=== PATIENT | female | born 2000 | race Caucasian/White ===

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

== ENCOUNTER → 2019-03-10 13:52 | Outpatient (CLI) | payer OTHER, SELFPAY ==
[2019-03-10 13:16] VITALS: BMI 23.0
[2019-03-10 15:38] LABS: HIV - WCH Non-Reactive (Nonreactive)
[2019-03-10 17:10] LABS: Chlamydia Trachomatis by PCR POSITIVE (Negative); Neisserai gonorrhoeae by PCR Negative (Negative); Probe Check PASS; Sample Adequacy Control PASS; Specimen Processing Control PASS
[2019-03-12 03:06] LABS: HCV Quant. RNA PCR HCV Not Detected IU/mL (.)
[2019-03-12 12:35] LABS: HSV 1 IgG < 0.91 index (0.00-0.90); HSV 2 IgG 3.46 index (0.00-0.90)
[2019-03-13 01:53] LABS: Rapid Plasmin Reagin (RPR) NONREACTIVE (NONREACTIVE)
== END ==
PROVIDERS: Referring Provider Nurse Practitioner Women's Health; Visit Provider Nurse Practitioner Women's Health
DX: Z11.3 Encounter for screening for infections with a predominantly sexual mode of transmission (principal)
CPT/HCPCS: 36415; 86592; 86695; 86696; 86703; 87491; 87522; 87591

== ENCOUNTER → 2019-03-22 14:26 | Outpatient (CLI) | payer OTHER, SELFPAY ==
[2019-03-22 08:20] VITALS: BMI 23.0
[2019-03-22 14:27] LABS: Mucous, Urine 0 SEEN /hpf (<or=2+)
[2019-03-22 14:53] LABS: Color, Urine SEE COMMENT BELOW (Yellow); Glucose, Dipstick Normal (Normal); Ketone-Dipstick Negative (Negative); Leukocyte Esterase-Dipstick 500 /ul (Negative); Nitrite-Dipstick Positive (Negative); Occult Blood-Urine 25 /ul (Negative); Protein-Dipstick 15 mg/dl (Negative); Urine Bilirubin Dipstick 6 mg/dL (Negative); Urine Clarity Sl. Cloudy (Clear); Urine Urobilinogen 8 mg/dl (Normal)
[2019-03-22 15:05] LABS: Bacteria RARE /hpf (None Seen); Red Blood Cells-Urine 0-5 SEEN /hpf (0-5); Squamous Epithelial Cells - UA 0-5 SEEN /hpf (5-10); White Blood Cells 10-25 SEEN /hpf (0-5)
== END ==
PROVIDERS: Referring Provider Physician Assistant; Visit Provider Physician Assistant
DX: R30.0 Dysuria (principal)
CPT/HCPCS: 81001; 87086; 87088

== ENCOUNTER → 2019-03-31 09:47 | Outpatient (CLI) | payer OTHER, SELFPAY ==
[2019-03-31 09:09] VITALS: BMI 23.0
[2019-03-31 12:05] LABS: Absolute Lymphocyte Count 1.31 X10^3/uL (0.83-4.51); Basophil# 0.01 X10^3/uL; Basophil% 0.1 % (0-1); Eosinophils% 1.5 % (0-5); Hematocrit 38.5 % (37-47); Lymphocyte # 1.31 X10^3/ul (4.0); Lymphocyte % 19.4 % (19-41); Mean Corp Hgb Conc 33.8 g/dL (32-36); Mean Corpuscular Hgb 30.1 pg (27.0-32.0); Mean Corpuscular Volume 89.1 fL (81-99); Mean Platelet Vol. 13.4 fl (6.2-12.0); Monocyte# 0.35 X10^3/uL; Monocyte% 5.2 % (0-10); NRBC Flagged by Analyzer 0 % (0-5); Neutrophil # 4.96 X10^3/uL (2.7-7.7); Neutrophil % 73.4 % (47-70); Platelet Count 157 K/mm3 (150-450); RBC Distribution Width CV 13.2 % (11.6-14.6); RBC Distribution Width SD 43.1 fl (35.1-43.9); Red Blood Count 4.32 M/mm3 (4.2-5.4); White Blood Count 6.8 K/mm3 (4.4-11.0)
[2019-03-31 12:28] LABS: Anion Gap 3 (5-15); BUN 11 mg/dL (7-18); BUN/Creat Ratio 15.1 RATIO (10-20); Calcium,Total 8.9 mg/dL (8.5-10.1); Chloride 106 mmol/L (98-107); Creatinine, Serum 0.73 mg/dL (0.55-1.02); EST Glomerular Filtration Rate 109 mL/min (>60); Est Glom Filt Rate - Afr Amer 132 mL/min (>60); Glucose 93 mg/dL (74-106); Potassium 3.9 mmol/L (3.5-5.1); Sodium Level 138 mmol/L (136-145); T4 Free Direct 1.04 ng/dL (0.76-1.46); Thyroid Stim Hormone (TSH) 0.89 uIU/mL (0.358-3.74)
== END ==
PROVIDERS: PCP Internal Medicine; Visit Provider Internal Medicine
DX: F41.9 Anxiety disorder, unspecified (principal); F32.9 Major depressive disorder, single episode, unspecified
CPT/HCPCS: 36415; 80048; 84439; 84443; 85025

== ENCOUNTER → 2019-07-22 13:08 | Outpatient (CLI) | payer OTHER, SELFPAY ==
[2019-07-22 12:56] VITALS: BMI 23.0
[2019-07-22 14:19] LABS: HIV - WCH Non-Reactive (Nonreactive)
[2019-07-22 16:14] LABS: Chlamydia Trachomatis by PCR Negative (Negative)
[2019-07-22 16:15] LABS: Neisserai gonorrhoeae by PCR Negative (Negative); Probe Check PASS; Sample Adequacy Control PASS; Specimen Processing Control PASS
[2019-07-24 01:56] LABS: Rapid Plasmin Reagin (RPR) NONREACTIVE (NONREACTIVE)
[2019-07-25 16:07] LABS: HCV Quant. RNA PCR HCV Not Detected IU/mL (.)
[2019-07-26 14:39] LABS: HSV 1 IgG < 0.91 index (0.00-0.90); HSV 2 IgG 1.16 index (0.00-0.90)
== END ==
PROVIDERS: PCP Internal Medicine; Referring Provider Nurse Practitioner Women's Health; Visit Provider Nurse Practitioner Women's Health
DX: Z11.3 Encounter for screening for infections with a predominantly sexual mode of transmission (principal)
CPT/HCPCS: 36415; 86592; 86695; 86696; 86703; 87491; 87522; 87591

== ENCOUNTER → 2019-10-03 08:34 | Outpatient (CLI) | payer OTHER, SELFPAY ==
[2019-10-03 08:10] VITALS: BMI 23.0
[2019-10-03 08:36] LABS: Mucous, Urine 0 SEEN /hpf (<or=2+); Red Blood Cells-Urine 0 SEEN /hpf (0-5)
[2019-10-03 12:18] LABS: Color, Urine Yellow (Yellow); Glucose, Dipstick Normal (Normal); Ketone-Dipstick Negative (Negative); Leukocyte Esterase-Dipstick 25 /ul (Negative); Nitrite-Dipstick Positive (Negative); Occult Blood-Urine Negative /ul (Negative); Protein-Dipstick 15 mg/dl (Negative); Specific Gravity, Urine 1.015 (1.002-1.030); Urine Clarity Sl. Cloudy (Clear); Urine Urobilinogen 4 mg/dl (Normal); Urine pH 6.5 (5.0 - 8.0)
[2019-10-03 12:20] LABS: Absolute Lymphocyte Count 1.93 X10^3/uL (0.83-4.51); Absolute Neutrophil Count 4.9 X10^3/uL (2.0-7.7); Basophil# 0.01 X10^3/uL; Basophil% 0.1 % (0-1); Eosinophil# 0.12 X10^3/uL; Eosinophils% 1.6 % (0-5); Hematocrit 40.2 % (37-47); Lymphocyte # 1.93 X10^3/ul (4.0); Lymphocyte % 25.8 % (19-41); Mean Corp Hgb Conc 32.3 g/dL (32-36); Mean Corpuscular Hgb 29.5 pg (27.0-32.0); Mean Corpuscular Volume 91.4 fL (81-99); Mean Platelet Vol. 13.6 fl (6.2-12.0); Monocyte# 0.52 X10^3/uL; NRBC Flagged by Analyzer 0 % (0-5); Neutrophil # 4.89 X10^3/uL (2.7-7.7); Neutrophil % 65.4 % (47-70); Platelet Count 139 K/mm3 (150-450); RBC Distribution Width CV 12.3 % (11.6-14.6); RBC Distribution Width SD 40.7 fl (35.1-43.9); White Blood Count 7.5 K/mm3 (4.4-11.0)
[2019-10-03 12:21] LABS: Urine Bilirubin Dipstick 3 mg/dL (Negative)
[2019-10-03 12:27] LABS: Bacteria 1+ /hpf (None Seen); Squamous Epithelial Cells - UA 0-5 SEEN /hpf (5-10); White Blood Cells 0-5 SEEN /hpf (0-5)
[2019-10-03 12:30] LABS: ALB/GLOB Ratio 1.2 RATIO (0.9-2.4); AST(SGOT) 14 U/L (15-37); Alanine Aminotransfer ALT/SGPT 23 U/L (13-56); Alkaline Phosphatase 60 U/L (45-117); Anion Gap 7 (5-15); BUN 15 mg/dL (7-18); BUN/Creat Ratio 22.8 RATIO (10-20); Calcium,Total 9.2 mg/dL (8.5-10.1); Chloride 103 mmol/L (98-107); Creatinine, Serum 0.66 mg/dL (0.55-1.02); EST Glomerular Filtration Rate 122 mL/min (>60); Est Glom Filt Rate - Afr Amer 148 mL/min (>60); Globulin 3.3 g/dL (2.2-4.2); Glucose 89 mg/dL (74-106); Potassium 3.7 mmol/L (3.5-5.1); Protein, Total 7.3 g/dL (6.4-8.2); Sodium Level 139 mmol/L (136-145)
[2019-10-03 13:48] LABS: Chlamydia Trachomatis by PCR Negative (Negative); Neisserai gonorrhoeae by PCR Negative (Negative); Probe Check PASS; Sample Adequacy Control PASS; Specimen Processing Control PASS
[2019-10-03 14:55] LABS: HIV - WCH Non-Reactive (Nonreactive); Hepatitis C Antibody Non-Reactive (Nonreactive); Vitamin B12 520 pg/mL (211-911)
[2019-10-19 23:48] LABS: CMV by PCR NEGATIVE
[2019-10-19 23:49] LABS: EBV Acute VCA IgM < 36.0
== END ==
PROVIDERS: PCP Internal Medicine; Referring Provider Internal Medicine; Visit Provider Internal Medicine
DX: R23.8 Other skin changes (principal); D69.6 Thrombocytopenia, unspecified; Z11.3 Encounter for screening for infections with a predominantly sexual mode of transmission; N39.0 Urinary tract infection, site not specified; R30.0 Dysuria
CPT/HCPCS: 36415; 80053; 81001; 82607; 85025; 86664; 86665; 86703; 86803; 87086; 87088; 87491; 87496; 87591

== ENCOUNTER → 2019-10-28 15:25 | Outpatient (CLI) | payer OTHER, SELFPAY ==
[2019-10-28 11:14] VITALS: BMI 23.0
[2019-10-28 15:33] LABS: Bacteria 0 SEEN /hpf (None Seen); Mucous, Urine 0 SEEN /hpf (<or=2+)
[2019-10-28 15:55] LABS: Color, Urine Yellow (Yellow); Glucose, Dipstick Normal (Normal); Ketone-Dipstick Negative (Negative); Leukocyte Esterase-Dipstick 25 /ul (Negative); Nitrite-Dipstick Negative (Negative); Occult Blood-Urine 25 /ul (Negative); Protein-Dipstick Negative (Negative); Urine Bilirubin Dipstick Negative (Negative); Urine Clarity Clear (Clear); Urine Urobilinogen Normal (Normal)
[2019-10-28 16:07] LABS: Red Blood Cells-Urine 0-5 SEEN /hpf (0-5); Squamous Epithelial Cells - UA 0-5 SEEN /hpf (5-10); White Blood Cells 0-5 SEEN /hpf (0-5)
== END ==
PROVIDERS: PCP Internal Medicine; Referring Provider Physician Assistant Surgical; Visit Provider Physician Assistant Surgical
DX: R30.0 Dysuria (principal)
CPT/HCPCS: 81001; 87077; 87086; 87088; 87186

== ENCOUNTER → 2019-11-07 09:04 | Outpatient (CLI) | payer OTHER, SELFPAY ==
[2019-11-07 08:28] VITALS: BMI 23.0
[2019-11-07 12:30] LABS: Absolute Neutrophil Count 3.3 X10^3/uL (2.0-7.7); Basophil# 0.01 X10^3/uL; Basophil% 0.2 % (0-1); Eosinophil# 0.12 X10^3/uL; Eosinophils% 2.2 % (0-5); Hematocrit 39.7 % (37-47); Hemoglobin 13.1 g/dL (12.0-15.0); Lymphocyte % 30.9 % (19-41); Mean Corpuscular Hgb 30.3 pg (27.0-32.0); Mean Corpuscular Volume 91.9 fL (81-99); Mean Platelet Vol. 13.7 fl (6.2-12.0); Monocyte# 0.34 X10^3/uL; Monocyte% 6.2 % (0-10); NRBC Flagged by Analyzer 0 % (0-5); Neutrophil # 3.33 X10^3/uL (2.7-7.7); Neutrophil % 60.3 % (47-70); Platelet Count 139 K/mm3 (150-450); RBC Distribution Width CV 12.4 % (11.6-14.6); RBC Distribution Width SD 41.5 fl (35.1-43.9); Red Blood Count 4.32 M/mm3 (4.2-5.4); White Blood Count 5.5 K/mm3 (4.4-11.0)
== END ==
PROVIDERS: PCP Internal Medicine; Referring Provider Internal Medicine; Visit Provider Internal Medicine
DX: D69.6 Thrombocytopenia, unspecified (principal)
CPT/HCPCS: 36415; 85025

== ENCOUNTER → 2019-11-21 07:44 | Outpatient (CLI) | payer OTHER, SELFPAY ==
[2019-10-30 14:24] VITALS: BMI 23.0
[2019-11-07 08:28] VITALS: BMI 23.0
--- NOTE | 2019-11-21 07:45 | US_ITS ---
STUDY: ULTRASOUND OF THE FEMALE PELVIS - COMPLETE REASON FOR EXAM: Female, 19 years old. Pelvic pain LMP: 10/21/2019. TECHNIQUE: Transabdominal and Transvaginal TECHNICAL QUALITY: Adequate. COMPARISON: None. FINDINGS: The uterus is anteverted and is in a midline position. The uterus measures 9.2 cm x 4.8 cm x 3.7 cm. Normal uterine cervix. The endometrium measures 7.2 mm in thickness, and is hyperechoic. There is no demonstrated endometrial mass. There is no demonstrated myometrial mass. I.U.D. - The patient does not have an I.U.D. The right ovary is visualized. The right ovary measures 3.8 cm x 2.5 cm x 2.2 cm. There is no right ovarian cyst or ovarian mass. Small ovarian follicles are seen. There is no visualized right adnexal mass or complex lesion. There is normal arterial and normal venous vascularity. The left ovary is visualized. The left ovary measures 3.7 cm x 4.2 cm x 2.6 cm. There is no left ovarian cyst or ovarian mass. Small ovarian follicles are seen. There is no visualized left adnexal mass or complex lesion. There is normal arterial and normal venous vascularity. There is no fluid in the cul-de-sac. The pre void volume of the bladder was 180 ml. Polycystic ovary disease: No. US/Pelvic (Non ) IMPRESSION: Normal female pelvis. Electronically Signed: Clarence Rodriguez, at 15:03 EDT , Service support ,
--- NOTE | 2019-11-21 07:45 | US_ITS ---
STUDY: ULTRASOUND OF THE FEMALE PELVIS - COMPLETE REASON FOR EXAM: Female, 19 years old. Pelvic pain LMP: 10/21/2019. TECHNIQUE: Transabdominal and Transvaginal TECHNICAL QUALITY: Adequate. COMPARISON: None. FINDINGS: The uterus is anteverted and is in a midline position. The uterus measures 9.2 cm x 4.8 cm x 3.7 cm. Normal uterine cervix. The endometrium measures 7.2 mm in thickness, and is hyperechoic. There is no demonstrated endometrial mass. There is no demonstrated myometrial mass. I.U.D. - The patient does not have an I.U.D. The right ovary is visualized. The right ovary measures 3.8 cm x 2.5 cm x 2.2 cm. There is no right ovarian cyst or ovarian mass. Small ovarian follicles are seen. There is no visualized right adnexal mass or complex lesion. There is normal arterial and normal venous vascularity. The left ovary is visualized. The left ovary measures 3.7 cm x 4.2 cm x 2.6 cm. There is no left ovarian cyst or ovarian mass. Small ovarian follicles are seen. There is no visualized left adnexal mass or complex lesion. There is normal arterial and normal venous vascularity. There is no fluid in the cul-de-sac. The pre void volume of the bladder was 180 ml. Polycystic ovary disease: No. US/Transvaginal Non- IMPRESSION: Normal female pelvis. Electronically Signed: Clarence Rodriguez, at 15:03 EDT , Service support ,
--- NOTE | 2019-11-21 08:22 | US_ITS ---
STUDY: RENAL ULTRASOUND - COMPLETE REASON FOR EXAM: Female, 19 years old. frequent UTI TECHNIQUE: Ultrasound evaluation of the kidneys was performed with real-time and static pérez-scale imaging. COMPARISON: None. FINDINGS: RIGHT KIDNEY: Normal location of the right kidney, which is normal in size. The right kidney measures 11.8 cm x 5.4 cm x 4.9 cm. There is a normal cortex of the right kidney. The renal cortex measures 2.2 cm. There is no right renal mass or cyst. There are no right renal calculi. There is no right hydronephrosis. DISTAL RIGHT URETER: There is non-visualization of the distal right ureter. There is no demonstrated right ureterovesical junction calculus. There is a visualized right ureteral jet. LEFT KIDNEY: Normal location of the left kidney, which is normal in size. The left kidney measures 11.8 signed by 4.6 x 5.4 cm. There is a normal cortex of the left kidney. The renal cortex measures 2.5 cm. There is no left renal mass or cyst. There are no left renal calculi. There is no left hydronephrosis. DISTAL LEFT URETER: There is non-visualization of the distal left ureter. There is no demonstrated left ureterovesical junction calculus. There is a visualized left ureteral jet. BLADDER: The distended urinary bladder has a volume of 215 ml. There is a normal wall thickness of the distended urinary bladder. There is no demonstrated mass within the urinary bladder. There are no demonstrated bladder calculi. US/Kidney and Bladder IMPRESSION: Normal ultrasound of the kidneys and urinary bladder. Electronically Signed: Clarence Rodriguez, at 14:17 EDT , Service support ,
== END ==
PROVIDERS: PCP Internal Medicine; Referring Provider Nurse Practitioner Women's Health; Visit Provider Nurse Practitioner Women's Health
DX: N39.0 Urinary tract infection, site not specified (principal); R10.2 Pelvic and perineal pain
CPT/HCPCS: 76770; 76830; 76856; 93976

== ENCOUNTER → 2020-03-22 13:45 | Outpatient (CLI) | payer OTHER, SELFPAY ==
[2019-11-24 17:19] VITALS: BMI 23.0
[2020-03-22 16:33] LABS: Bacteria 0 SEEN /hpf (None Seen); Mucous, Urine 0 SEEN /hpf (<or=2+); Red Blood Cells-Urine 0 SEEN /hpf (0-5); Squamous Epithelial Cells - UA 0 SEEN /hpf (5-10)
[2020-03-22 17:04] LABS: Color, Urine Yellow (Yellow); Glucose, Dipstick Normal (Normal); Ketone-Dipstick Negative (Negative); Leukocyte Esterase-Dipstick Negative /ul (Negative); Nitrite-Dipstick Negative (Negative); Occult Blood-Urine Negative /ul (Negative); Protein-Dipstick Negative (Negative); Urine Bilirubin Dipstick Negative (Negative); Urine Clarity Clear (Clear); Urine Urobilinogen Normal (Normal)
[2020-03-22 17:42] LABS: White Blood Cells 0-5 SEEN /hpf (0-5)
[2020-03-22 19:03] LABS: Chlamydia Trachomatis by PCR Negative (Negative); Neisserai gonorrhoeae by PCR Negative (Negative); Probe Check PASS; Sample Adequacy Control PASS; Specimen Processing Control PASS
== END ==
PROVIDERS: PCP Internal Medicine; Referring Provider Physician Assistant; Visit Provider Physician Assistant
DX: R30.0 Dysuria (principal)
CPT/HCPCS: 81001; 87086; 87491; 87591

== ENCOUNTER → 2020-12-23 14:35 | Outpatient (CLI) | payer BC, SELFPAY | PROVIDERS: PCP Internal Medicine; Referring Provider Physician Assistant; Visit Provider Physician Assistant | DX: R09.89 Other specified symptoms and signs involving the circulatory and respiratory systems (principal) | CPT/HCPCS: 87635; U0005; U0003 ==

== ENCOUNTER → 2020-12-29 13:14 | Outpatient (CLI) | payer BC, SELFPAY | PROVIDERS: PCP Internal Medicine; Visit Provider Physician Assistant | DX: Z11.52 Encounter for screening for COVID-19 (principal) | CPT/HCPCS: 87635; U0005; U0003 ==

== ENCOUNTER 2021-09-14 14:51 | Emergency (ER) | payer BC, SELFPAY ==
[2021-09-14 14:51] VITALS: BP 129/78; PULSE 91; RESP 18; TEMP 36.7; O2SAT 98; BMI 27.6
--- NOTE | 2021-09-14 16:14 | EX.ED.DYSGE1 ---
HPI History of Present Illness Chief Complaint: GI Bleed Detail of Chief Complaint: rectal bleeding Informant: patient Onset/Context/Timing Onset: Days (2) Timing: Intermittent Quality: BRB after BM Location: rectum Current Severity: Mild Maximum Severity: Mild Worsened by: having BM Relieved by: nothing Associated Symptoms Associated Symptoms: anal pain w/ BMs. abd bloating at times. constipation. Narrative Narrative: Patient is chronically constipated. She states typically 3 to 4 days out of each week, she tends to have very hard stools resulting in straining. She has had some blood come out after bowel movement, not mixed with stool, for the past 2 days. She is also had perianal pain with this when she is passing stool. She states it feels very sharp and she cannot necessarily feel which side it is on if any. Occasional abdominal bloating and some nausea, but not necessarily just the past 2 days for that. No systemic symptoms of anemia. Called her doctor's office and referred to the ER for this today. [facility] Medical History Anxiety Concussion Depression Dermatitis Encounter for screening for COVID-19 Headache Hives Seasonal allergies Home Medications valacyclovir 500 mg tablet 500 mg PO BID PRN #90 tablet 07/13/20 [Rx Last Taken Unknown] desogestrel-e.estradiol 0.15 mg-0.02 mg(21)/e.estrad 0.01 mg(5) tablet 1 tab PO DAILY #84 tab 06/27/21 [Rx Last Taken Unknown] sertraline 50 mg tablet 75 mg PO DAILY 30 Days #45 tab 06/27/21 [Rx Last Taken Unknown] albuterol sulfate 90 mcg/actuation aerosol inhaler 2 puff INHALATION Q6H PRN #6.7 g 08/16/21 [Rx Last Taken Unknown] hydrocortisone-pramoxine [Proctofoam HC] 1 applic AL QHS PRN #10 g 09/14/21 [Rx Last Taken Unknown] melatonin 40 mg PO QHS PRN 09/14/21 [History Last Taken Unknown] spironolactone 75 mg PO DAILY 09/14/21 [History Last Taken Unknown] Allergy/AdvReac Type Severity Reaction Status Date / Time ascorbic acid Allergy Intermediate unknown Verified 09/14/21 14:53 [From Airborne (ascorbate sodium)] glutamine Allergy Intermediate unknown Verified 09/14/21 14:53 [From Airborne (ascorbate sodium)] herbal complex no.124 Allergy Intermediate unknown Verified 09/14/21 14:53 [From Airborne (ascorbate sodium)] lysine HCl Allergy Intermediate unknown Verified 09/14/21 14:53 [From Airborne (ascorbate sodium)] multivitamin with minerals Allergy Intermediate unknown Verified 09/14/21 14:53 [From Airborne (ascorbate sodium)] latex AdvReac Mild hives Verified 09/14/21 14:53 Milk Containing Products AdvReac Mild unknown Verified 09/14/21 14:53 Family History Mother Breast cancer Osteoporosis Grandfather Heart disease Grandmother Anxiety Other Alcohol abuse Arthritis Cancer Surgical History History of anterior cruciate ligament surgery History of tonsillectomy and adenoidectomy History of wisdom tooth extraction Social History current occupation: [employer] Smoking Status: Never smoker alcohol intake: never substance use type: does not use what type of physical activity do you participate in: walking frequency: daily seatbelt use: always do you feel safe at home: Yes ROS ROS ED Constitutional Constitutional ED: Denies chills or fever(s) Eyes Eyes: Denies change in vision or diplopia ENT ENT ED: Denies rhinorrhea or sore throat Cardiovascular Cardiovascular: Denies chest pain or palpitations Respiratory/Chest Respiratory/Chest: Denies cough or dyspnea Gastrointestinal Gastrointestinal: Reports as per HPI, bloating, constipation, nausea and rectal bleeding; Denies abdominal pain, diarrhea, hematemesis, melena or vomiting Genitourinary Genitourinary ED: Denies dysuria or hematuria Musculoskeletal Musculoskeletal: Denies back pain or neck pain Integumentary Denies abscess or rash Neurologic Neurologic: Denies headache(s), paresthesias or weakness Psychiatric Psychiatric: Denies anxiety or suicidal thoughts EXAM Physical Exam Const Vital Signs: 09/14/21 14:51 Temperature 98.1 F Temperature Source Temporal Pulse Rate 91 Respiratory Rate 18 Blood Pressure 129/78 H Blood Pressure Mean 95 Pulse Ox 98 Oxygen Delivery Method Room Air Positive well nourished and well developed General Appearance ED: well developed and NAD HEENT Reports moist mucous membranes normocephalic and atraumatic Eyes PERRL and EOMs intact bilaterally Neck full ROM and supple Resp normal respiratory effort and clear to auscultation bilaterally Cardio regular rate, regular rhythm and no murmurs GI non-tender and non-distended GI Narrative: Abdomen nondistended and nontender throughout. Patient is well appearing. On rectal exam, there is some mild tenderness on both sides, there is no fullness or abscess. There appears to be a nonbleeding mostly healed fissure at the 3:00 aspect of the anal verge. No other abnormalities. No external hemorrhoids seen. No active bleeding. Auscultation: normoactive bowel sounds Palpation: soft Back/Spine no CVA tenderness General Back: other FROM Extremity normal to inspection General Extremety ED: Negative for edema, pulses abnormal or tenderness General Extremity: Negative for edema or pulses abnormal Neuro oriented x3, CN's II-XII intact bilaterally and no sensory deficits noted Sensorium / Orientation: awake and alert Motor Exam: strength 5/5 throughout Skin no rashes or lesions noted and no wounds MDM MDM MDM Narrative Medical decision making narrative: Reassured I do not think she needs any emergent testing here in emergency department. Could have a small anal fissure that is not necessarily acute/new, could also have internal hemorrhoids or external hemorrhoids below the dentate line that are not currently visible or prolapsed/thrombosed. I recommend Proctofoam injected into the anus, in addition to sitz baths, I will give her surgery to follow-up with. We also discussed using MiraLAX every day as a stool softener, she only uses it at stool-softening doses when she actually needs a laxative. Her symptoms are consistent with constipation-prominent irritable bowel syndrome. I will refer her to GI since she does have some chronic issues/symptoms with regards to the GI tract. Discharge Plan Triage Chief Complaint: GI Bleed ED Provider: Nolan Goyal Dx/Rx/DC Orders Clinical Impression: Bright red rectal bleeding, Constipation, Anal fissure Instructions: ED Understanding Anal Fissures, Diagnosing Hemorrhoids, Taking a Sitz Bath, ED Constipation (Adult) Prescriptions: New Proctofoam HC 1-1 % foam 1 applic AL QHS PRN (Reason: hemorrhoids) Qty: 10 RF: 0 No Action valacyclovir [Valtrex] 500 mg tablet 500 mg PO BID PRN (Reason: Herpes) Qty: 90 RF: 3 desog-e.estradiol/e.estradiol [Kariva (28)] 0.15-0.02 mgx21 /0.01 mg x 5 tablet 1 tab PO DAILY Qty: 84 RF: 3 sertraline 50 mg tablet 75 mg PO DAILY 30 Days Qty: 45 RF: 1 albuterol sulfate 90 mcg/actuation HFA aerosol inhaler 2 puff inhalation Q6H PRN (Reason: shortness of breath or wheezing) Qty: 6.7 RF: 1 spironolactone 100 mg tablet 75 mg PO DAILY RF: 0 melatonin 10 mg Tablet 40 mg PO QHS PRN (Reason: Sleep) RF: 0 Stand Alone Forms: ED Work / School Excuse Primary Care Provider: Jorden Dietrich Referrals: Jorden Dietrich MD [Primary Care Provider] - Redd Bianchi DO [STAFF PHYSICIAN] - (Call for appointment) Activity Restrictions/Additional Instructions: Use the prescription as directed for at least the next 7-10 days, in addition to sitz bath as for the anal fissure and softening her stool with MiraLAX daily, Dulcolax as needed is a laxative. Disposition Disposition: Home, Self Care
[2021-09-14 16:34] VITALS: RESP 16
== END 2021-09-14 16:35 | disposition home or self-care (01) ==
PROVIDERS: Emergency Provider Emergency Medicine; PCP Internal Medicine; Visit Provider Emergency Medicine
DX: K62.5 Hemorrhage of anus and rectum (principal); K59.00 Constipation, unspecified; K60.2 Anal fissure, unspecified; Z79.899 Other long term (current) drug therapy
CPT/HCPCS: 99282

== ENCOUNTER → 2021-11-24 | Outpatient (CLI) | payer BC, SELFPAY ==
[2021-11-24 10:35] LABS: HIV - WCH Non-Reactive (Nonreactive); Hepatitis C Antibody Non-Reactive (Nonreactive); Syphilis Antibodies Non-reactive
[2021-11-25 21:06] LABS: Chlamydia By Nucleic Acid AMP Negative (Negative)
[2021-11-26 15:39] LABS: Gonococcus By Nucleic Acid AMP Negative (Negative)
[2021-11-30 14:27] LABS: HPV Reflexed? NOT INDICATED
== END | disposition home or self-care (01) ==
PROVIDERS: PCP Internal Medicine; Visit Provider Nurse Practitioner Women's Health
DX: Z20.2 Contact with and (suspected) exposure to infections with a predominantly sexual mode of transmission (principal); Z12.4 Encounter for screening for malignant neoplasm of cervix
CPT/HCPCS: 36415; 86703; 86780; 86803; 87491; 87591; 88175; G0145

== ENCOUNTER 2022-03-10 11:22 | Emergency (ER) | payer BC, SELFPAY ==
[2022-03-10 11:23] VITALS: BP 119/80; PULSE 111; RESP 18; TEMP 36.6; O2SAT 100; BMI 27.3
--- NOTE | 2022-03-10 11:43 | EDS_ITS ---
HPI History of Present Illness Chief Complaint: Allergic Reaction Informant: patient Onset/Context/Timing Onset: Days (3) Context: Gradual Onset Timing: Continuous Quality: Itching. Location: Generalized Worsened by: Nothing Relieved by: Nothing Narrative Narrative: Patient presents with allergic reaction that has been getting worse over the last 3 days. Patient started with a rash 2 days ago. Patient states it is gradually getting worse. Patient describes it as itching and hives. Patient states her throat started feeling scratchy today. Patient started having some shortness of breath today. Patient states nothing makes it worse and nothing makes it better. Patient has a history of multiple environmental allergies but denies any new exposures. [facility] Medical History Concussion Contact with and (suspected) exposure to other viral communicable diseases COVID-19 Depression Dermatitis Headache Hives Seasonal allergies URI (upper respiratory infection) Home Medications albuterol sulfate 90 mcg/actuation aerosol inhaler 2 puff inhalation Q6H PRN shortness of breath or wheezing #6.7 grams 08/16/21 [Rx Last Taken Unknown] melatonin 10 mg tablet 40 mg PO QHS PRN Sleep 09/14/21 [History Last Taken Unknown] sertraline 200 mg capsule 200 mg PO DAILY #30 caps 01/16/22 [Rx Last Taken Unknown] valacyclovir 500 mg tablet (Valtrex) 500 mg PO BID PRN Herpes #90 tabs 01/23/22 [Rx Last Taken Unknown] methylprednisolone 4 mg tablets in a dose pack See Rx Instructions PO PER PKG DIR #21 tabs 01/26/22 [Rx Last Taken Unknown] trazodone 50 mg tablet 25 mg PO QHS PRN sleep #20 tabs 02/23/22 [Rx Last Taken Unknown] prednisone 20 mg tablet 60 mg PO DAILY #12 TABLETS 03/10/22 [Rx Last Taken Unknown] Allergy/AdvReac Type Severity Reaction Status Date / Time ascorbic acid Allergy Intermediate unknown Verified 03/10/22 11:23 [From Airborne (ascorbate sodium)] glutamine Allergy Intermediate unknown Verified 03/10/22 11:23 [From Airborne (ascorbate sodium)] herbal complex no.124 Allergy Intermediate unknown Verified 03/10/22 11:23 [From Airborne (ascorbate sodium)] lysine HCl Allergy Intermediate unknown Verified 03/10/22 11:23 [From Airborne (ascorbate sodium)] multivitamin with minerals Allergy Intermediate unknown Verified 03/10/22 11:23 [From Airborne (ascorbate sodium)] latex AdvReac Mild hives Verified 03/10/22 11:23 Milk Containing Products AdvReac Mild unknown Verified 03/10/22 11:23 Family History Mother Breast cancer Osteoporosis Grandfather Heart disease Grandmother Anxiety Other Alcohol abuse Arthritis Cancer Surgical History History of anterior cruciate ligament surgery History of tonsillectomy and adenoidectomy History of wisdom tooth extraction Social History current occupational status: employed current occupation: [email or web address] Smoking Status: Never smoker alcohol intake: current alcohol intake frequency: a few times a month substance use type: does not use what type of physical activity do you participate in: walking frequency: daily seatbelt use: always do you feel safe at home: Yes ROS ROS ED Constitutional Constitutional ED: Denies chills or fever(s) Eyes Eyes: Denies blurry vision or change in vision ENT ENT ED: Reports sore throat; Denies rhinorrhea Cardiovascular Cardiovascular: Denies chest pain or palpitations Respiratory/Chest Respiratory/Chest: Reports dyspnea; Denies cough Gastrointestinal Gastrointestinal: Denies nausea or vomiting Genitourinary Genitourinary ED: Denies dysuria or hematuria Musculoskeletal Musculoskeletal: Denies back pain or neck pain Integumentary Reports rash; Denies abscess Neurologic Neurologic: Denies headache(s) or weakness Allergic/Immunologic Allergic/Immunologic ED: Reports urticaria; Denies mouth swelling or tongue sw elling EXAM Physical Exam Const Vital Signs: 03/10/22 11:23 03/10/22 11:59 Temperature 97.8 F Temperature Source Temporal Pulse Rate 111 H 94 Respiratory Rate 18 18 Blood Pressure 119/80 Blood Pressure Mean 93 Pulse Ox 100 98 Oxygen Delivery Method Room Air Room Air Positive well nourished and well developed General Appearance ED: well developed HEENT Reports moist mucous membranes Neck supple and no JVD Resp normal respiratory effort and clear to auscultation bilaterally Cardio regular rate, regular rhythm and no murmurs GI normal to inspection, nondistended, normoactive bowel sounds and non-tender Palpation: soft Extremity normal to inspection General Extremety ED: Negative for edema or tenderness General Extremity: Negative for edema Neuro oriented x3, CN's II-XII intact bilaterally and no sensory deficits noted Sensorium / Orientation: alert Motor Exam: strength 5/5 throughout Psych mental status grossly normal Skin Skin Narrative: There is a diffuse urticarial rash noted. There are no vesicles or pustules. There are no petechia noted. There is no involvement with the mucous membranes. MDM MDM MDM Narrative Medical decision making narrative: Patient was given Solu-Medrol, Benadryl, and Pepcid. Patient is feeling better on reevaluation. Rash is improving. Patient was given a prescription for prednisone. Patient was instructed to follow-up with her primary care physician in 5 to 7 days. Patient understood and was agreeable with the plan. All questions were answered. Discharge Plan Triage Chief Complaint: Allergic Reaction ED Provider: Negro Martinez Dx/Rx/DC Orders Clinical Impression: Urticaria, Allergic reaction Instructions: ED Hives (Adult) Prescriptions: New prednisone 20 MG tablet 60 mg PO DAILY Qty: 12 0RF No Action albuterol sulfate 90 mcg/actuation HFA aerosol inhaler 2 puff inhalation Q6H PRN (Reason: shortness of breath or wheezing) Qty: 6.7 1RF sertraline 200 mg capsule 200 mg PO DAILY Qty: 30 0RF methylprednisolone 4 mg tablets,dose pack See Rx Instructions PO PER PKG DIR Qty: 21 0RF Rx Instructions: PO PER PKG DIR melatonin 10 mg Tablet 40 mg PO QHS PRN (Reason: Sleep) valacyclovir [Valtrex] 500 mg tablet 500 mg PO BID PRN (Reason: Herpes) Qty: 90 3RF trazodone 50 mg tablet 25 mg PO QHS PRN (Reason: sleep) Qty: 20 0RF Primary Care Provider: Jorden Dietrich Referrals: Jorden Dietrich MD [Primary Care Provider] - 5-7 Days Disposition Disposition: Home, Self Care
[2022-03-10] MEDS: DiphenhydrAMINE 50 MG/ML Syringe 25 MG IV (11:51)
[2022-03-10] MEDS: MethylPREDNISolone 125 MG/2 ML Vial 60 MG IV (11:51)
[2022-03-10] MEDS: Famotidine 200 MG/20 ML MDV 20 MG in 0.9% Normal Saline (Pres. free 8 ML 300 MG IV (11:56)
[2022-03-10 11:59] VITALS: PULSE 94; RESP 18; O2SAT 98
[2022-03-10 13:59] VITALS: PULSE 75; O2SAT 98
== END 2022-03-10 14:03 | disposition home or self-care (01) ==
PROVIDERS: Emergency Provider Emergency Medicine; PCP Internal Medicine; Visit Provider Emergency Medicine
DX: L50.9 Urticaria, unspecified (principal); T78.40XA Allergy, unspecified, initial encounter; Z86.16 Personal history of COVID-19; X58.XXXA Exposure to other specified factors, initial encounter
CPT/HCPCS: 96374; 96375; 99283; A4216; J3490

== ENCOUNTER → 2022-06-13 | Outpatient (CLI) | payer BC, SELFPAY ==
[2022-06-13 17:10] LABS: HIV - WCH Non-Reactive (Nonreactive); Hepatitis C Antibody Non-Reactive (Nonreactive); Syphilis Antibodies Non-reactive
== END | disposition home or self-care (01) ==
LOC: LAB 13:38
PROVIDERS: PCP Internal Medicine; Visit Provider Nurse Practitioner Women's Health
DX: Z20.2 Contact with and (suspected) exposure to infections with a predominantly sexual mode of transmission (principal)
CPT/HCPCS: 36415; 86703; 86780; 86803

== ENCOUNTER → 2022-07-13 | Outpatient (CLI) | payer BC, SELFPAY ==
[2022-07-15 18:07] LABS: Clam <0.10 kU/L (Class 0); Codfish <0.10 kU/L (Class 0); Corn <0.10 kU/L (Class 0); Egg, White <0.10 kU/L (Class 0); Milk (Cow) <0.10 kU/L (Class 0); Peanut <0.10 kU/L (Class 0); Shrimp <0.10 kU/L (Class 0); Soybean <0.10 kU/L (Class 0); Walnut, (Food) <0.10 kU/L (Class 0); Wheat 0.16 kU/L (Class 0/I)
[2022-07-16 11:18] LABS: SESAME SEED 0.16 kU/L (Class 0/I)
[2022-07-19 06:08] LABS: Alternaria tenuis <0.10 kU/L (Class 0); Ash, White 0.15 kU/L (Class 0/I); Aspergillus fumigatus <0.10 kU/L (Class 0); Birch <0.10 kU/L (Class 0); Black Walnut 0.14 kU/L (Class 0/I); Cat Hair / Dander,Stand <0.10 kU/L (Class 0); Cedar, Mountain 0.12 kU/L (Class 0/I); Cladosporium herbarum <0.10 kU/L (Class 0); Cockroach, American 0.33 kU/L (Class I); Cottonwood <0.10 kU/L (Class 0); D farinae Mite <0.10 kU/L (Class 0); D pteronyssinus <0.10 kU/L (Class 0); Dog Epithelia <0.10 kU/L (Class 0); Elm, American White 0.11 kU/L (Class 0/I); Immunoglobulin E 26 IU/mL (6-495); Mulberry, White <0.10 kU/L (Class 0); Oak, White 0.16 kU/L (Class 0/I); Pecan <0.10 kU/L (Class 0); Penicillium Notatum <0.10 kU/L (Class 0); Pigweed, Rough <0.10 kU/L (Class 0); Ragweed, Short/Common 0.27 kU/L (Class 0/I); Russian Thistle 0.22 kU/L (Class 0/I); Sheep Sorrel 0.28 kU/L (Class 0/I); Sycamore, American 0.13 kU/L (Class 0/I); Timothy Grass 0.16 kU/L (Class 0/I)
[2022-07-19 09:49] LABS: Mouse Urine <0.10 kU/L (Class 0)
== END | disposition home or self-care (01) ==
LOC: LAB 09:24
PROVIDERS: PCP Internal Medicine; Referring Provider Otolaryngology; Visit Provider Otolaryngology
DX: T78.40XA Allergy, unspecified, initial encounter (principal)
CPT/HCPCS: 36415; 82785; 86003

== ENCOUNTER → 2022-11-02 | Outpatient (CLI) | payer BC, SELFPAY ==
[2022-11-02 11:58] LABS: Absolute Lymphocyte Count 1.52 X10^3/uL (0.83-4.51); Absolute Neutrophil Count 5.2 X10^3/uL (2.0-7.7); Basophil# 0.01 X10^3/uL; Basophil% 0.1 % (0-1); Eosinophil# 0.12 X10^3/uL; Eosinophils% 1.7 % (0-5); Hematocrit 42.5 % (37-47); Hemoglobin 13.9 g/dL (12.0-15.0); Lymphocyte # 1.52 X10^3/ul (0.83-4.51); Lymphocyte % 21.2 % (19-41); Mean Corp Hgb Conc 32.7 g/dL (32-36); Mean Corpuscular Hgb 29.1 pg (27.0-32.0); Mean Corpuscular Volume 89.1 fL (81-99); Mean Platelet Vol. 13.3 fl (6.2-12.0); Monocyte% 4.2 % (0-10); NRBC Flagged by Analyzer 0 % (0-5); Neutrophil # 5.19 X10^3/uL (2.7-7.7); Neutrophil % 72.4 % (47-70); Platelet Count 158 K/mm3 (150-450); RBC Distribution Width CV 12.6 % (11.6-14.6); RBC Distribution Width SD 41.1 fl (35.1-43.9); Red Blood Count 4.77 M/mm3 (4.2-5.4); White Blood Count 7.2 K/mm3 (4.4-11.0)
[2022-11-02 12:55] LABS: Anion Gap 6 (5-15); BUN 10 mg/dL (7-18); BUN/Creat Ratio 12.6 RATIO (10-20); Calcium,Total 9.4 mg/dL (8.5-10.1); Chloride 103 mmol/L (98-107); Creatinine, Serum 0.79 mg/dL (0.55-1.02); EST Glomerular Filtration Rate 96 mL/min (>60); Est Glom Filt Rate - Afr Amer 116 mL/min (>60); Glucose 138 mg/dL (74-106); Potassium 3.7 mmol/L (3.5-5.1); Sodium Level 138 mmol/L (136-145); Thyroid Stim Hormone (TSH) 0.79 uIU/mL (0.358-3.74)
== END | disposition home or self-care (01) ==
LOC: LAB 11:05
PROVIDERS: PCP Internal Medicine; Referring Provider Student in an Organized Health Care Education/Training Program; Visit Provider Student in an Organized Health Care Education/Training Program
DX: G47.10 Hypersomnia, unspecified (principal); F43.10 Post-traumatic stress disorder, unspecified
CPT/HCPCS: 36415; 80048; 84443; 85025

== ENCOUNTER → 2022-11-28 | Outpatient (CLI) | payer BC, SELFPAY ==
[2022-11-28 10:58] LABS: hCG Titer Quant., Serum 63 mIU/mL (1-3)
== END | disposition home or self-care (01) ==
PROVIDERS: PCP Internal Medicine; Referring Provider Nurse Practitioner Women's Health; Visit Provider Nurse Practitioner Women's Health
DX: Z34.90 Encounter for supervision of normal pregnancy, unspecified, unspecified trimester (principal)
CPT/HCPCS: 36415; 84702; 86850; 86900; 86901

== ENCOUNTER → 2022-11-30 | Outpatient (CLI) | payer BC, SELFPAY ==
[2022-11-30 11:03] LABS: hCG Titer Quant., Serum 182 mIU/mL (1-3)
== END | disposition home or self-care (01) ==
LOC: PAVLAB 09:51
PROVIDERS: PCP Internal Medicine; Referring Provider Nurse Practitioner Women's Health; Visit Provider Nurse Practitioner Women's Health
DX: Z34.90 Encounter for supervision of normal pregnancy, unspecified, unspecified trimester (principal)
CPT/HCPCS: 36415; 84702

== ENCOUNTER 2022-12-14 13:32 | Outpatient (CLI) | payer BC, SELFPAY ==
[2022-12-14] MEDS: 0.9% NaCl Peripheral Flush Adult/Peds IV (14:21)
[2022-12-14] MEDS: Ondansetron 4 MG/2 ML Vial IV (14:29)
[2022-12-14] MEDS: Dextrose 5%-Lactated Ringers 1,000 ML 999 ML IV (14:29)
[2022-12-14 14:31] VITALS: BP 115/66; PULSE 71; RESP 16; TEMP 36.3; O2SAT 98
[2022-12-14 15:43] VITALS: BP 105/60; PULSE 68; RESP 16
== END 2022-12-14 13:33 | disposition home or self-care (01) ==
LOC: MEDOUTP 13:32
PROVIDERS: PCP Internal Medicine; Referring Provider Obstetrics & Gynecology; Visit Provider Obstetrics & Gynecology
DX: E86.0 Dehydration (principal)
CPT/HCPCS: 96365; 96375; A4216; J2405

== ENCOUNTER 2022-12-19 11:44 | Outpatient (CLI) | payer BC, SELFPAY ==
[2022-12-19 12:08] VITALS: BP 110/73; PULSE 67; RESP 16; TEMP 36.1; O2SAT 100
[2022-12-19] MEDS: Dextrose 5%-Lactated Ringers 1,000 ML 999 ML IV (12:11)
[2022-12-19] MEDS: Ondansetron 4 MG/2 ML Vial IV (13:07)
[2022-12-19] MEDS: 0.9% NaCl Peripheral Flush Adult/Peds IV (13:09)
[2022-12-22 13:07] LABS: Chlamydia By Nucleic Acid AMP Negative (Negative); Gonococcus By Nucleic Acid AMP Negative (Negative)
== END 2022-12-19 11:45 | disposition home or self-care (01) ==
PROVIDERS: PCP Internal Medicine; Referring Provider Obstetrics & Gynecology; Visit Provider Obstetrics & Gynecology
DX: Z34.90 Encounter for supervision of normal pregnancy, unspecified, unspecified trimester (principal); O99.280 Endocrine, nutritional and metabolic diseases complicating pregnancy, unspecified trimester; E86.0 Dehydration; Z3A.00 Weeks of gestation of pregnancy not specified
CPT/HCPCS: 96365; 96375; 87491; 87591; A4216; J2405

== ENCOUNTER 2022-12-28 12:52 | Outpatient (CLI) | payer BC, SELFPAY ==
[2022-12-28] MEDS: Dextrose 5%-Lactated Ringers 1,000 ML 999 ML IV (13:28)
[2022-12-28] MEDS: Ondansetron 4 MG/2 ML Vial IV (13:34)
[2022-12-28] MEDS: 0.9% NaCl Peripheral Flush Adult/Peds IV (13:35)
[2022-12-28 13:38] VITALS: BP 114/76; PULSE 73; RESP 16; TEMP 36.6; O2SAT 98; BMI 27.5
[2022-12-28 14:42] VITALS: BP 117/61; RESP 16
== END 2022-12-28 12:53 | disposition home or self-care (01) ==
PROVIDERS: PCP Internal Medicine; Referring Provider Obstetrics & Gynecology; Visit Provider Obstetrics & Gynecology
DX: E86.0 Dehydration (principal)
CPT/HCPCS: 96365; 96375; 87086; 87088; A4216; J2405

== ENCOUNTER 2023-01-01 11:54 | Outpatient (CLI) | payer MEDICAID, BC, SELFPAY ==
[2023-01-01] MEDS: 0.9% NaCl Peripheral Flush Adult/Peds IV (12:14)
[2023-01-01] MEDS: Dextrose 5%-Lactated Ringers 1,000 ML 999 ML IV (12:19)
[2023-01-01] MEDS: Ondansetron 4 MG/2 ML Vial IV (12:19)
[2023-01-01 12:21] VITALS: BP 99/76; PULSE 62; RESP 16; TEMP 36.2; O2SAT 100
[2023-01-01 13:31] VITALS: BP 119/64; PULSE 81; RESP 16
== END 2023-01-01 11:55 | disposition home or self-care (01) ==
PROVIDERS: PCP Internal Medicine; Referring Provider Registered Nurse; Visit Provider Registered Nurse
DX: O09.91 Supervision of high risk pregnancy, unspecified, first trimester (principal); O99.280 Endocrine, nutritional and metabolic diseases complicating pregnancy, unspecified trimester; E86.0 Dehydration; Z3A.00 Weeks of gestation of pregnancy not specified
CPT/HCPCS: 96365; 96375; 87077; 87086; 87088; 87186; A4216; J2405

== ENCOUNTER 2023-01-11 12:37 | Emergency (ER) | payer BC, SELFPAY ==
[2023-01-11 12:39] VITALS: BP 112/79; PULSE 86; RESP 18; TEMP 36.3; O2SAT 100; BMI 28.3
--- NOTE | 2023-01-11 13:08 | EDS_ITS ---
HPI History of Present Illness Chief Complaint: Nausea/Vomiting Informant: patient Narrative Narrative: Presents secondary to nausea and vomiting with concerns for dehydration. She is currently 10 weeks and has been diagnosed with hyperemesis. She states that she was on Zofran as well as oral Phenergan in the past. She is currently on a rectal Phenergan, but states this irritates her stomach and causes her to have a bowel movement as soon as she inserts it so she does not feel it is being absorbed. She has not been able to keep any fluids down today and has not urinated. She states that she is being treated for a UTI but cannot keep the antibiotic down. [facility] Medical History COVID-19 Depression Dermatitis Hives Hypersomnia PTSD (post-traumatic stress disorder) Seasonal allergies Sore throat Home Medications epinephrine 0.3 mg/0.3 mL injection, auto-injector (EpiPen) 0.3 mg (0.3 mL) IM ONCE PRN anaphylaxis #2 ea 03/28/22 [Rx Last Taken Unknown] sertraline 200 mg capsule 200 mg PO DAILY #90 caps 05/15/22 [Rx Last Taken Unknown] ondansetron 4 mg disintegrating tablet 4 mg PO Q6H PRN nausea and vomiting #30 tabs 12/19/22 [Rx Last Taken Unknown] promethazine 25 mg rectal suppository 25 mg HI Q6H PRN nausea and vomiting #12 ea 01/01/23 [Rx Last Taken Unknown] amoxicillin 500 mg tablet 500 mg PO BID #14 tabs 01/03/23 [Rx Last Taken Unknown] metoclopramide HCl 10 mg tablet (Reglan) 10 mg PO Q6H PRN nausea and vomiting #20 tabs 01/11/23 [Rx Last Taken Unknown] Allergy/AdvReac Type Severity Reaction Status Date / Time ascorbic acid Allergy Intermediate Hives Verified 01/11/23 12:39 [From Airborne (ascorbate sodium)] glutamine Allergy Intermediate unknown Verified 01/01/23 10:36 [From Airborne (ascorbate sodium)] herbal complex no.124 Allergy Intermediate unknown Verified 01/11/23 12:39 [From Airborne (ascorbate sodium)] lysine HCl Allergy Intermediate unknown Verified 01/11/23 12:39 [From Airborne (ascorbate sodium)] multivitamin with minerals Allergy Intermediate unknown Verified 01/11/23 12:39 [From Airborne (ascorbate sodium)] latex AdvReac Mild hives Verified 01/11/23 12:39 Milk Containing Products AdvReac Mild unknown Verified 01/11/23 12:39 (Dairy) [Milk Containing Products] chlorine Allergy Intermediate Anaphylaxis Uncoded 01/11/23 12:39 Family History Mother Breast cancer, Onset Age: 48 Negative Genetic Testing Osteoporosis Grandfather Heart disease Lung cancer, Onset Age: 73 Paternal Grandmother Anxiety Aunt Breast cancer, Onset Age: 61 Other Alcohol abuse Arthritis Cancer Surgical History History of anterior cruciate ligament surgery History of tonsillectomy and adenoidectomy History of wisdom tooth extraction Social History current occupational status: employed current occupation: [employer] Smoking Status: Never smoker alcohol intake: current alcohol intake frequency: a few times a month substance use type: does not use and marijuana what type of physical activity do you participate in: walking frequency: daily seatbelt use: always do you feel safe at home: Yes additional social history: Boyfriend-Raghav ROS ROS ED Constitutional Constitutional ED: Denies chills or fever(s) Eyes Eyes: Denies discharge from eye(s) ENT ENT ED: Denies discharge from eye(s), rhinorrhea or sore throat Cardiovascular Cardiovascular: Denies chest pain or palpitations Respiratory/Chest Respiratory/Chest: Denies cough or dyspnea Gastrointestinal Gastrointestinal: Reports abdominal pain, nausea and vomiting; Denies diarrhea Genitourinary Genitourinary ED: Reports other Details: Decreased urination ; Denies dysuria Musculoskeletal Musculoskeletal: Denies back pain or extremity pain Integumentary Denies Abrasions or rash Neurologic Neurologic: Denies headache(s) or weakness Psychiatric Psychiatric: Denies anxiety or depression Allergic/Immunologic Allergic/Immunologic ED: Denies lip swelling or urticaria EXAM Physical Exam Const Vital Signs: 01/11/23 12:39 01/11/23 14:59 Temperature 97.4 F L Temperature Source Temporal Pulse Rate 86 Respiratory Rate 18 16 Blood Pressure 112/79 Blood Pressure Mean 90 Pulse Ox 100 Oxygen Delivery Method Room Air Positive well nourished and well developed General Appearance ED: well developed HEENT Reports normocephalic and head/scalp atraumatic Eyes PERRL and EOMs intact bilaterally Neck supple Chest Wall inspection of chest normal and palpation of chest normal Resp normal respiratory effort and clear to auscultation bilaterally Cardio regular rate and regular rhythm GI GI Narrative: Abdomen soft with mild suprapubic tenderness. No guarding or rebound. Hypoactive but present bowel sounds are noted. Palpation: soft Back/Spine no CVA tenderness Extremity normal to inspection Neuro oriented x3 and no sensory deficits noted Sensorium / Orientation: alert Motor Exam: strength 5/5 throughout Psych mental status grossly normal Skin no rashes or lesions noted MDM MDM MDM Narrative Medical decision making narrative: Patient given IV fluids along with Zofran. Labwork obtained to evaluate for leukocytosis, anemia, and electrolyte derangement. Urinalysis obtained to evaluate for infection/hematuria. History & Record Review Discussion w/independent historian: Patient Lab Data Attestation: I reviewed the patient's lab results. Labs: Laboratory Results - last 24 hr 01/11/23 01/11/23 13:13 13:37 WBC 11.3 H RBC 4.15 L Hgb 13.0 Hct 36.0 L MCV 86.7 MCH 31.3 MCHC 36.1 H RDW Std Deviation 40.8 RDW Coeff of Williams 13.0 Plt Count 146 L MPV 12.8 H Immature Gran % (Auto) 0.400 Neut % (Auto) 79.3 H Lymph % (Auto) 14.9 L Mcclain % (Auto) 4.7 Eos % (Auto) 0.6 Baso % (Auto) 0.1 Absolute Neuts (auto) 9.0 H Absolute Lymphs (auto) 1.68 Nucleated RBC % 0 Sodium 136 Potassium 3.6 Chloride 107 Carbon Dioxide 27.0 Anion Gap 2 L BUN 8 Creatinine 0.55 Estim Creat Clear Calc 160.48 Est GFR (MDRD) Af Amer 175 Est GFR (MDRD) Non-Af 145 BUN/Creatinine Ratio 14.5 Glucose 84 Calcium 8.9 Urine Color Yellow Urine Clarity Cloudy Urine pH 7.0 Ur Specific [place] 1.010 Urine Protein 15 H Urine Glucose (UA) Normal Urine Ketones 50 H Urine Occult Blood Negative Urine Nitrite Negative Urine Bilirubin Negative Urine Urobilinogen Normal Ur Leukocyte Esterase 500 H Urine RBC 0-5 SEEN Urine WBC 5-10 SEEN Ur Squamous Epith Cells 25-50 SEEN Urine Bacteria 2+ Urine Mucus 0 SEEN Treatment and Re-Evaluation :: CBC reveals a white count of 11.3 with 79% neutrophils. Hemoglobin is 13. Kusum juan studies are unremarkable. Urinalysis does show 2+ bacteria, however 25- 50 epithelial cells are noted. She will has 5-10 white cells and no nitrites. After Zofran patient states she actually felt worse. She was given a dose of Reglan and Benadryl at this time feels improved and is tolerating p.o. fluids. Patient tells me that she has had a UTI for the past 3 weeks and not been able to tolerate her oral antibiotics. In light of this she was given a dose of Rocephin. I do not think that her urine should be sent for culture as it is a contaminated sample and will not give us beneficial information. I spoke with Dr. Robertson. She agrees with discharging the patient prescription for Reglan to see if this helps control her nausea better. She will hopefully then be able to continue her oral antibiotics at home Discharge Plan Triage Chief Complaint: Nausea/Vomiting ED Provider: Natasha Hallman Dx/Rx/DC Orders Clinical Impression: , Vomiting Instructions: ED Hyperemesis Gravidarum Prescriptions: New metoclopramide HCl [Reglan] 10 mg tablet 10 mg PO Q6H PRN (Reason: nausea and vomiting) Qty: 20 0RF No Action epinephrine [EpiPen] 0.3 mg/0.3 mL auto-injector 0.3 mg IM ONCE PRN (Reason: anaphylaxis) Qty: 2 0RF Rx Instructions: as a single dose; may repeat once after 5-15 minutes promethazine 25 mg suppository 25 mg HI Q6H PRN (Reason: nausea and vomiting) Qty: 12 2RF ondansetron 4 mg tablet,disintegrating 4 mg PO Q6H PRN (Reason: nausea and vomiting) Qty: 30 4RF sertraline 200 mg capsule 200 mg PO DAILY Qty: 90 3RF amoxicillin 500 mg tablet 500 mg PO BID Qty: 14 0RF Primary Care Provider: Jorden Dietrich Referrals: Jorden Dietrich MD [Primary Care Provider] - Kika Robertson MD [Med Staff - Active Staff] - Keep Ronel appointment
[2023-01-11] MEDS: Ondansetron 4 MG/2 ML Vial IV (13:12)
[2023-01-11] MEDS: 0.9% Normal Saline (1000mL) 1,000 ML 1000 ML IV (13:12)
[2023-01-11 13:39] LABS: Absolute Lymphocyte Count 1.68 X10^3/uL (0.83-4.51); Basophil# 0.01 X10^3/uL; Basophil% 0.1 % (0-1); Eosinophil# 0.07 X10^3/uL; Eosinophils% 0.6 % (0-5); Lymphocyte # 1.68 X10^3/ul (0.83-4.51); Lymphocyte % 14.9 % (19-41); Mean Corp Hgb Conc 36.1 g/dL (32-36); Mean Corpuscular Hgb 31.3 pg (27.0-32.0); Mean Corpuscular Volume 86.7 fL (81-99); Mean Platelet Vol. 12.8 fl (6.2-12.0); Monocyte# 0.53 X10^3/uL; Monocyte% 4.7 % (0-10); NRBC Flagged by Analyzer 0 % (0-5); Neutrophil # 8.96 X10^3/uL (2.7-7.7); Neutrophil % 79.3 % (47-70); Platelet Count 146 K/mm3 (150-450); RBC Distribution Width SD 40.8 fl (35.1-43.9); Red Blood Count 4.15 M/mm3 (4.2-5.4); White Blood Count 11.3 K/mm3 (4.4-11.0)
[2023-01-11 13:43] LABS: Mucous, Urine 0 SEEN /hpf (<or=2+)
[2023-01-11 13:50] LABS: Color, Urine Yellow (Yellow); Glucose, Dipstick Normal (Normal); Ketone-Dipstick 50 mg/dl (Negative); Leukocyte Esterase-Dipstick 500 /ul (Negative); Nitrite-Dipstick Negative (Negative); Occult Blood-Urine Negative /ul (Negative); Protein-Dipstick 15 mg/dl (Negative); Urine Bilirubin Dipstick Negative (Negative); Urine Clarity Cloudy (Clear); Urine Urobilinogen Normal (Normal)
[2023-01-11 13:53] LABS: Anion Gap 2 (5-15); BUN 8 mg/dL (7-18); BUN/Creat Ratio 14.5 RATIO (10-20); Calcium,Total 8.9 mg/dL (8.5-10.1); Chloride 107 mmol/L (98-107); Creatinine, Serum 0.55 mg/dL (0.55-1.02); EST Glomerular Filtration Rate 145 mL/min (>60); Est Glom Filt Rate - Afr Amer 175 mL/min (>60); Estimated Creatinine Clearance 160.48 ml/min; Glucose 84 mg/dL (74-106); Potassium 3.6 mmol/L (3.5-5.1); Sodium Level 136 mmol/L (136-145)
[2023-01-11 13:58] LABS: Squamous Epithelial Cells - UA 25-50 SEEN /hpf (5-10)
[2023-01-11 13:59] LABS: Bacteria 2+ /hpf (None Seen); Red Blood Cells-Urine 0-5 SEEN /hpf (0-5); White Blood Cells 5-10 SEEN /hpf (0-5)
[2023-01-11] MEDS: 0.9% Normal Saline (1000mL) 1,000 ML 150 ML IV (14:34)
[2023-01-11] MEDS: DiphenhydrAMINE 50 MG/ML Syringe 25 MG IV (14:51)
[2023-01-11] MEDS: Metoclopramide 10 MG/2 ML Vial IV (14:52)
[2023-01-11] MEDS: Ceftriaxone 1 GM/50 ML BAG IV (14:57)
[2023-01-11 14:59] VITALS: RESP 16
== END 2023-01-11 16:49 | disposition home or self-care (01) ==
PROVIDERS: Emergency Provider Emergency Medicine; PCP Internal Medicine; Visit Provider Emergency Medicine
DX: O21.0 Mild hyperemesis gravidarum (principal); Z3A.10 10 weeks gestation of pregnancy; Z86.16 Personal history of COVID-19
CPT/HCPCS: 80048; 81001; 85025; 96365; 96375; 99283; J7030; A4216; J2405

== ENCOUNTER 2023-01-22 13:00 | Outpatient (CLI) | payer BC, SELFPAY ==
[2023-01-22 13:21] VITALS: BP 109/73; PULSE 74; RESP 16; TEMP 36.4; O2SAT 98
[2023-01-22] MEDS: 0.9% NaCl Peripheral Flush Adult/Peds IV (13:24)
[2023-01-22] MEDS: Ondansetron 4 MG/2 ML Vial IV (13:28)
[2023-01-22] MEDS: Dextrose 5%-Lactated Ringers 1,000 ML 999 ML IV (13:31)
[2023-01-22 14:50] VITALS: BP 114/66; PULSE 74
== END 2023-01-22 13:01 | disposition home or self-care (01) ==
LOC: MEDOUTP 13:00
PROVIDERS: PCP Internal Medicine; Referring Provider Advanced Practice Midwife; Visit Provider Advanced Practice Midwife
DX: E86.0 Dehydration (principal)
CPT/HCPCS: 96365; 96375; A4216; J2405

== ENCOUNTER 2023-02-01 12:28 | Outpatient (CLI) | payer BC, SELFPAY ==
[2023-02-01] MEDS: Ondansetron 4 MG/2 ML Vial IV (13:06)
[2023-02-01] MEDS: 0.9% NaCl Peripheral Flush Adult/Peds IV ×2 (13:06→13:09)
[2023-02-01] MEDS: Dextrose 5%-Lactated Ringers 1,000 ML 999 ML IV (13:07)
[2023-02-01 13:09] VITALS: BP 110/67; PULSE 86; RESP 16; TEMP 36.3
== END 2023-02-01 12:29 | disposition home or self-care (01) ==
LOC: MEDOUTP 12:28
PROVIDERS: PCP Internal Medicine; Referring Provider Obstetrics & Gynecology; Visit Provider Obstetrics & Gynecology
DX: E86.0 Dehydration (principal)
CPT/HCPCS: 96365; 96375; A4216; J2405

== ENCOUNTER → 2023-02-28 | Outpatient (CLI) | payer MEDICAID, SELFPAY ==
[2023-02-28 11:17] LABS: Absolute Neutrophil Count 9.1 X10^3/uL (2.0-7.7); Basophil# 0.01 X10^3/uL; Basophil% 0.1 % (0-1); Eosinophil# 0.04 X10^3/uL; Eosinophils% 0.4 % (0-5); Hematocrit 39.7 % (37-47); Hemoglobin 13.4 g/dL (12.0-15.0); Lymphocyte % 13.5 % (19-41); Mean Corp Hgb Conc 33.8 g/dL (32-36); Mean Corpuscular Hgb 29.2 pg (27.0-32.0); Mean Corpuscular Volume 86.5 fL (81-99); Mean Platelet Vol. 12.8 fl (6.2-12.0); Monocyte% 3.6 % (0-10); NRBC Flagged by Analyzer 0 % (0-5); Neutrophil # 9.11 X10^3/uL (2.7-7.7); Neutrophil % 81.9 % (47-70); Platelet Count 153 K/mm3 (150-450); RBC Distribution Width CV 12.7 % (11.6-14.6); RBC Distribution Width SD 39.9 fl (35.1-43.9); Red Blood Count 4.59 M/mm3 (4.2-5.4); White Blood Count 11.1 K/mm3 (4.4-11.0)
[2023-02-28 12:14] LABS: HIV - WCH Non-Reactive (Nonreactive); Hepatitis B Surface Antigen Non-Reactive (Nonreactive); Hepatitis C Antibody Non-Reactive (Nonreactive); Rubella IgG Reactive (Nonreactive); Syphilis Antibodies Non-reactive
== END | disposition home or self-care (01) ==
PROVIDERS: PCP Internal Medicine; Referring Provider Obstetrics & Gynecology; Visit Provider Obstetrics & Gynecology
DX: O09.91 Supervision of high risk pregnancy, unspecified, first trimester (principal); Z3A.00 Weeks of gestation of pregnancy not specified
CPT/HCPCS: 36415; 85025; 86703; 86762; 86780; 86803; 86850; 86900; 86901; 87340

== ENCOUNTER → 2023-03-19 | Outpatient (CLI) | payer MEDICAID, SELFPAY ==
--- NOTE | 2023-03-19 12:04 | US_ITS ---
STUDY: SECOND AND THIRD TRIMESTER OBSTETRICAL ULTRASOUND REASON FOR EXAM: Female, 22 years old anatomy LMP: November 05, 2022. TECHNIQUE: Transabdominal and Transvaginal TECHNICAL QUALITY: Adequate. PRIOR ULTRASOUND: None. FINDINGS: There is a single intrauterine fetus. The fetus is in a breech presentation. There is demonstrated cardiac activity with a heart rate of 148 bpm. There is a normal amniotic fluid volume. The largest amniotic fluid pocket measures 2.6 cm x 6.7 cm. The amniotic fluid index (MAICOL) is within normal limits. The placenta is anterior in location and is not low lying. There are Grade 0 placental changes. The cervix measures 4.6 cm in length. The adnexal regions are not visualized. BIOMETRY: BPD: 4.06 cm: 18 weeks, 2 days HC: 16.17 cm: 19 weeks, 0 days AC: 13.83 cm: 19 weeks, 2 days FL: 3.05 cm: 19 weeks, 3 days CI: 68.87% FL/BPD: 75% FL/HC: FL/AC: 22% HC/AC: 1.17 age by current US: 19 weeks, 1 days. HEATHER by current US: August 12, 2023. Estimated weight: 280 grams, +/- 42 grams, 48 %. Age by LMP: 19 weeks, 1 days. HEATHER by LMP: August 12, 2023. ANATOMY: Gender: Female Cranium: Normal lateral ventricles. Normal choroid plexus. Normal cerebellum. Normal cisterna magna. Normal face, nose and lips. Chest: Normal 4-chamber heart. Abdomen/Pelvis: Normal diaphragm. Normal stomach. Normal abdominal wall. Normal cord insertion. Normal 3 vessel cord. Normal kidneys. Normal bladder. Spine: Normal cervical spine. Normal thoracic spine. Normal lumbar spine. Normal sacrum. Extremities: Normal bilateral upper extremities. Normal bilateral lower extremities. IMPRESSION: Single live uterine gestation with a mean gestational age of 19 weeks and 1 day. Electronically Signed: Clarence Rodriguez MD at 15:12 EST , STUDY: FIRST TRIMESTER OBSTETRICAL ULTRASOUND REASON FOR EXAM: Female, 22 years old. Cervical length measurement. LMP: November 05, 2022 TECHNIQUE: Transvaginal TECHNICAL QUALITY: Adequate. PRIOR ULTRASOUND: None. FINDINGS: Cervical length measures 4.6 cm. US/OB Anatomy Scan IMPRESSION: Cervical length measures 4.6 cm. Electronically Signed: Clarence Rodriguez MD at 15:13 EST ,
== END | disposition home or self-care (01) ==
PROVIDERS: PCP Internal Medicine; Referring Provider Obstetrics & Gynecology; Visit Provider Obstetrics & Gynecology
DX: O09.91 Supervision of high risk pregnancy, unspecified, first trimester (principal); Z3A.00 Weeks of gestation of pregnancy not specified
CPT/HCPCS: 76805; 76817

== ENCOUNTER → 2023-04-08 | Outpatient (CLI) | payer BC, MEDICAID, SELFPAY ==
[2023-04-08 14:18] LABS: Mucous, Urine 0 SEEN /hpf (<or=2+)
[2023-04-08 14:30] LABS: Color, Urine Yellow (Yellow); Glucose, Dipstick Normal (Normal); Ketone-Dipstick 5 mg/dl (Negative); Leukocyte Esterase-Dipstick 500 /ul (Negative); Nitrite-Dipstick Negative (Negative); Occult Blood-Urine 25 /ul (Negative); Protein-Dipstick 30 mg/dl (Negative); Urine Bilirubin Dipstick Negative (Negative); Urine Clarity Sl. Cloudy (Clear); Urine Urobilinogen Normal (Normal); Urine pH 6.5 (5.0 - 8.0)
[2023-04-08 14:52] LABS: Bacteria 2+ /hpf (None Seen); Red Blood Cells-Urine 0-5 SEEN /hpf (0-5); Squamous Epithelial Cells - UA 0-5 SEEN /hpf (5-10); White Blood Cells >100 SEEN /hpf (0-5)
== END | disposition home or self-care (01) ==
PROVIDERS: Visit Provider Nurse Practitioner Family
DX: R30.0 Dysuria (principal)
CPT/HCPCS: 81001; 87077; 87086; 87088; 87186

== ENCOUNTER → 2023-05-23 | Outpatient (CLI) | payer OTHER, BC, SELFPAY ==
[2023-05-23 10:45] LABS: Absolute Lymphocyte Count 1.33 X10^3/uL (0.83-4.51); Absolute Neutrophil Count 9.7 X10^3/uL (2.0-7.7); Basophil# 0.02 X10^3/uL; Basophil% 0.2 % (0-1); Eosinophil# 0.07 X10^3/uL; Eosinophils% 0.6 % (0-5); Hemoglobin 12.3 g/dL (12.0-15.0); Lymphocyte # 1.33 X10^3/ul (0.83-4.51); Lymphocyte % 11.4 % (19-41); Mean Corp Hgb Conc 33.2 g/dL (32-36); Mean Corpuscular Hgb 28.9 pg (27.0-32.0); Mean Corpuscular Volume 86.9 fL (81-99); Mean Platelet Vol. 13.6 fl (6.2-12.0); Monocyte# 0.45 X10^3/uL; Monocyte% 3.8 % (0-10); NRBC Flagged by Analyzer 0 % (0-5); Neutrophil % 82.8 % (47-70); Platelet Count 113 K/mm3 (150-450); RBC Distribution Width CV 13.2 % (11.6-14.6); RBC Distribution Width SD 41.4 fl (35.1-43.9); Red Blood Count 4.26 M/mm3 (4.2-5.4); White Blood Count 11.7 K/mm3 (4.4-11.0)
--- OUTSIDE RECORDS SUMMARY | 2023-05-23 11:40 | XMS RPT_ITS | CCD ---
Author Name Unknown Address [address] [place] [address] Organization [facility] Care Team Providers Care [place] Name Role Phone Unavailable Primary Care Provider Unavailabl e Results Test Name Value Interpretation Reference Range Facil ity Encounters Encounter Date Encounter Type Care Provider Facility Start: 01-09-2023 Telephone encounter Sheryl Escobar MD Work Phone: OB/Gynecology Plan of Treatment Date Care Activity Detail Author Start: 12-15-2022 Influenza vaccination Influenza Vacc ine (#1) [facility] Start: 04-16-2022 Depression Assessment Depression Ass essment [facility] Start: 11-13-2020 Pap Testing Pap Testing [facility] Start: 11-13-2018 Urine microalbumin profile DTa P,Tdap,Td Vaccine (1 - Tdap) [facility] Start: 11-13-2017 Chlamydia Screening (18-24) Chlamydia Screening (18-24) [facility] Start: 11-13-2017 GC (Gonorrhea) Scree laurel (18-24) GC (Gonorrhea) Screening (18-24) [facility] Start: 11-13-2017 Hepatitis C Screening Hepatitis C Sc reening [facility] Start: 11-13-2017 HIV Screening HIV Screening [facility] Start: 11-13-2013 Peds To Adult Transi tion Annual Assessment Peds To Adult Transition Annual Assessment [facility] Start: 2011 Peds To Adult Transi tion Initial Discussion Peds To Adult Transition Initial Discussion [facility] Start: 11-13-2008 HPV Vaccine (1 - 2-d ose series) HPV Vaccine (1 - 2-dose series) [facility] Start: 05-16-2000 Covid-19 Vaccine (#1) Covid-19 Vacci ne (#1) [facility] Start: 1999 Hepatitis B Vaccine (1 of 3 - 3-dose series) Hepatitis B Vaccine (1 of 3 - 3-dose series) [facility] Payers Date Payer Category Payer Unknown [employer] BLUE CARD PPO OOS [id number] 2022-Present [phone] [address] [place] [address] PPO [id number] Social History Date Type Detail Facility [facility] Work Phone: Start: 01-15-2023 History of Social function [facility] Start: 01-15-2023 Area Deprivation Index [facility] National Score (1-10 0), lower number is lower risk 64 [facility] Start: 1999 Sex Assigned At Not on file C [facility] Clinic Note 01-15-2023 Telephone Encounter - Sneha Chiu RN - 01/15/2023 2:18 PM EDTTelephone Encounter - Asha Hinojosa LPN - 01/12/2023 10:54 AM EDTTelephone Encounter - Sneha Chiu RN - 01/11/2023 12:33 PM EDT Note Date & Type Note Facility 01-15-2023 Miscellaneous Notes Formattin g of this note might be different from the original. Attempted to call patient for PNOB x 3. Left message on voicemail for patient to return phone call Pt returned call and stated that she was in the hospital yesterday for UTI that is not improving. Pt stated that she is transferring care to our practice from [place], and she has made several request for her records to be transferred to our office and she said that she has not been able to get a response from their office. Pt was encouraged to go into the office and sign a records release . Pt stated that she will go in today and try to get copies faxed to our office. Asha Hinojosa LPN called patient and when she answered phone she said she couldn't talk right now that she was in the hospital. No updates in [place].Still need records from [place] if she is going to transfer care. Will need to triage when she calls back to see if she still needs PNOB on Sunday. Noted. Ok to accept. Sheryl Escobar MD I attempted to call patient but she said she would return phone call. Has hyperemesis and unable to talk at that time. Patient has PNOB appt 01/15. Notes state she is transferring care from [place]. No HEATHER on notes. Patient states she will call us back tomorrow. We need to triage and get records from [place] and make NOB appointment if OK with Dr Escobar documented in this encounter [facility] Summary Purpose Family History No Family History Records FoundNo Family History Records FoundNo Family History Records Found Advance Directives No Advanced Directives Records FoundNo Advanced Directives Records FoundNo Advanced Directives Records Found Additional Source Comments INFORMATION SOURCE (unrecogn ized section and content) DATE CREATED AUTHOR AUTHOR'S ORGANIZ ATION 11/29/2021 [facility] DATE CREATED AUTHOR AUTHOR'S ORGANIZ ATION 01/31/2023 [facility] Source Comments (unrecognize d section and content) In the event this informatio n is protected by the Federal Confidentiality of Alcohol and Drug Abuse Patient Records regulations: The Federal rules restrict any use of the information to criminally investigate or prosecute any alcohol or drug abuse patient.[facility] Reason for Visit (unrecogniz ed section and content) FOR RECORDS PERTAINING TO PATIENTS WHO ARE OR HAVE BEEN ENROLLED IN A CHEMICAL DEPENDENCY/SUBSTANCEABUSE PROGRAM, SOME INFORMATION MAY BE OMITTED. This clinical summary was aggregated from multiple sources. Caution should be exercised in using it in the provision of clinical care. This summary normalizes information from multiple sources, and as a consequence, information in this document may materially change the coding, format and clinical context of patient data. In addition, data may be omitted in some cases. CLINICAL DECISIONS SHOULD BE BASED ON THE PRIMARY CLINICAL RECORDS. [facility] [employer] [facility]. provides no warranty or guarantee of the accuracy or completeness of information in this document.
[2023-05-23 11:49] LABS: HIV - WCH Non-Reactive (Nonreactive); Syphilis Antibodies Non-reactive
[2023-05-23 11:58] LABS: Glucose Challenge Gest 1H 50g 143 mg/dL (70-140)
== END | disposition home or self-care (01) ==
LOC: PAVLAB 09:43 → LAB 09:56
PROVIDERS: Referring Provider Obstetrics & Gynecology; Visit Provider Obstetrics & Gynecology
DX: O09.91 Supervision of high risk pregnancy, unspecified, first trimester (principal); Z13.1 Encounter for screening for diabetes mellitus; Z3A.00 Weeks of gestation of pregnancy not specified
CPT/HCPCS: 36415; 82950; 85025; 86703; 86780

== ENCOUNTER → 2023-05-25 | Outpatient (CLI) | payer OTHER, BC, SELFPAY ==
--- OUTSIDE RECORDS SUMMARY | 2023-05-25 06:47 | XMS RPT_ITS | CCD ---
Author Name Unknown Address [address] [place] [address] Organization [facility] Care Team Providers Care Sample Hand Name Role Phone Unavailable Primary Care Provider Unavailabl e Results Test Name Value Interpretation Reference Range Facil ity Encounters Encounter Date Encounter Type Care Provider Facility Start: 01-09-2023 Telephone encounter Sheryl Escobar MD Work Phone: OB/Gynecology Plan of Treatment Date Care Activity Detail Author Start: 12-15-2022 Influenza vaccination Influenza Vacc ine (#1) [facility] Start: 04-16-2022 Depression Assessment Depression Ass essment [facility] Start: 11-13-2020 Pap Testing Pap Testing [facility] Start: 11-13-2018 Urine microalbumin profile DTa P,Tdap,Td Vaccine (1 - Tdap) [facility] Start: 11-13-2017 Chlamydia Screening (18-24) Chlamydia Screening (18-24) [facility] Start: 11-13-2017 GC (Gonorrhea) Scree laurel (18-24) GC (Gonorrhea) Screening (18-24) [facility] Start: 11-13-2017 Hepatitis C Screening Hepatitis C Sc reening [facility] Start: 11-13-2017 HIV Screening HIV Screening [facility] Start: 11-13-2013 Peds To Adult Transi tion Annual Assessment Peds To Adult Transition Annual Assessment [facility] Start: 2011 Peds To Adult Transi tion Initial Discussion Peds To Adult Transition Initial Discussion [facility] Start: 11-13-2008 HPV Vaccine (1 - 2-d ose series) HPV Vaccine (1 - 2-dose series) [facility] Start: 05-16-2000 Covid-19 Vaccine (#1) Covid-19 Vacci ne (#1) [facility] Start: 1999 Hepatitis B Vaccine (1 of 3 - 3-dose series) Hepatitis B Vaccine (1 of 3 - 3-dose series) [facility] Payers Date Payer Category Payer Unknown [employer] BLUE CARD PPO OOS [id number] 2022-Present [phone] [address] [place] [address] PPO [id number] Social History Date Type Detail Facility [facility] Work Phone: Start: 01-15-2023 History of Social function [facility] Start: 01-15-2023 Area Deprivation Index [facility] National Score (1-10 0), lower number is lower risk 64 [facility] Start: 1999 Sex Assigned At Not on file C [facility] Note 01-15-2023 Telephone Encounter - Sneha [...] is transferring care to our practice from [place], and she has made several request for [...] was in the hospital. No updates in [place].Still need records from [place] if she is going to transfer care. [...] Notes state she is transferring care from [place]. No HEATHER on notes. Patient states she will call us back tomorrow. We need to triage and get records from [place] and make NOB appointment if OK with Dr Escobar documented in this encounter [facility] Summary Purpose Family History No Family History Records FoundNo Family History Records FoundNo Family History Records Found Advance Directives No Advanced Directives Records FoundNo Advanced Directives Records FoundNo Advanced Directives Records Found Additional Source Comments INFORMATION SOURCE (unrecogn ized section and content) DATE CREATED AUTHOR AUTHOR'S ORGANIZ ATION 11/29/2021 [facility] DATE CREATED AUTHOR AUTHOR'S ORGANIZ ATION 01/31/2023 [facility] Source Comments (unrecognize d section and content) [...] BE BASED ON THE PRIMARY CLINICAL RECORDS. [facility] [employer] [facility]. provides no warranty or guarantee of the accuracy or completeness of information in this document.
[2023-05-25 07:42] LABS: Glucose GTT-Gestation. Fasting 88 mg/dL (<105)
[2023-05-25 08:03] LABS: Prothrombin Time (Protime)PT. 13.1 SECONDS (11.7-14.9)
[2023-05-25 08:04] LABS: Partial Thromboplast Time 26.4 Seconds (24.1-36.2)
[2023-05-25 10:20] LABS: Glucose GTT-Gestational 1 Hr 221 mg/dL (<190)
[2023-05-25 10:44] LABS: Glucose GTT-Gestational 2 Hr 133 mg/dL (<165)
[2023-05-25 11:04] LABS: Glucose GTT-Gestational 3 Hr 74 L (<145)
== END | disposition home or self-care (01) ==
PROVIDERS: PCP Internal Medicine; Referring Provider Nurse Practitioner Women's Health; Visit Provider Nurse Practitioner Women's Health
DX: O99.119 Other diseases of the blood and blood-forming organs and certain disorders involving the immune mechanism complicating pregnancy, unspecified trimester (principal); D69.6 Thrombocytopenia, unspecified; Z3A.00 Weeks of gestation of pregnancy not specified; Z13.1 Encounter for screening for diabetes mellitus
CPT/HCPCS: 36415; 82951; 82952; 85610; 85730

== ENCOUNTER 2023-05-28 10:45 | Outpatient (CLI) | payer OTHER, BC, SELFPAY ==
[2023-05-28 11:08] VITALS: BP 122/69; PULSE 97; TEMP 37.1
[2023-05-28 11:10] VITALS: BMI 33.9
[2023-05-28 11:49] LABS: ROM Internal Control Test YES-OK TO RESULT pt. (Internal QC); ROM Patient Test Negative (Negative)
--- NOTE | 2023-05-28 18:22 | OB.TRI.PN ---
Progress Notes Date of Service: 05/28/23 Progress Note: Patient presents for triage evaluation secondary to possible leaking fluid and decreased movement FHT: 140 Moderate variability reactive no decelerations category I tracing [place]: no regular ctx Contractions Assessment and plan: decreased movement, amniotic membranes intact rom plus negative Reactive NST, reassuring maternal and status patient discharged to home to follow-up as scheduled. See problem list details for additional plan information. Laboratory Studies: Laboratory Tests 05/28/23 Range/Units 11:14 Vag Amniotic Fld Detect Negative (Negative) Charges/Coding Procedures Urinary/Genital [id number]: [id number] non-stress test Interp
== END 2023-05-28 12:49 | disposition home or self-care (01) ==
LOC: WPOUT 10:50 → WP 10:51
PROVIDERS: PCP Internal Medicine; Referring Provider Obstetrics & Gynecology; Visit Provider Obstetrics & Gynecology
DX: O36.8190 Decreased fetal movements, unspecified trimester, not applicable or unspecified (principal); Z3A.00 Weeks of gestation of pregnancy not specified
CPT/HCPCS: 59025; 59050; 84112; 99221; G0378

== ENCOUNTER → 2023-06-22 | Outpatient (CLI) | payer OTHER, BC, SELFPAY ==
[2023-06-22 08:44] LABS: Absolute Lymphocyte Count 1.49 X10^3/uL (0.83-4.51); Absolute Neutrophil Count 10.1 X10^3/uL (2.0-7.7); Basophil# 0.04 X10^3/uL; Basophil% 0.3 % (0-1); Eosinophil# 0.06 X10^3/uL; Eosinophils% 0.5 % (0-5); Hemoglobin 11.9 g/dL (12.0-15.0); Lymphocyte # 1.49 X10^3/ul (0.83-4.51); Mean Corp Hgb Conc 33.1 g/dL (32-36); Mean Corpuscular Hgb 28.4 pg (27.0-32.0); Mean Corpuscular Volume 85.9 fL (81-99); Monocyte# 0.49 X10^3/uL; Monocyte% 3.9 % (0-10); NRBC Flagged by Analyzer 0 % (0-5); Neutrophil % 81.4 % (47-70); Platelet Count 112 K/mm3 (150-450); RBC Distribution Width CV 13.5 % (11.6-14.6); RBC Distribution Width SD 41.8 fl (35.1-43.9); Red Blood Count 4.19 M/mm3 (4.2-5.4); White Blood Count 12.4 K/mm3 (4.4-11.0)
--- OUTSIDE RECORDS SUMMARY | 2023-06-22 08:57 | XMS RPT_ITS | CCD ---
Author Name Unknown Address [address] [place] [address] Organization [facility] Care Team Providers Care Retort [employer] [employer] Name Role Phone Unavailable Primary Care Provider Unavailabl e Results Test Name Value Interpretation Reference Range Facil ity Encounters Encounter Date Encounter Type Care Provider Facility Start: 01-09-2023 Telephone encounter Sheryl Escobar MD Work Phone: OB/Gynecology Plan of Treatment Date Care Activity Detail Author Start: 12-15-2022 Influenza vaccination Influenza Vacc ine (#1) [facility] Start: 04-16-2022 Depression Assessment Depression Ass essment [facility] Start: 11-13-2020 Pap Testing Pap Testing [facility] Start: 11-13-2018 Urine microalbumin profile DTa P,Tdap,Td Vaccine (1 - Tdap) [facility] Start: 11-13-2017 Chlamydia Screening (18-24) Chlamydia Screening (18-24) [facility] Start: 11-13-2017 GC (Gonorrhea) Scree laurel (18-24) GC (Gonorrhea) Screening (18-24) [facility] Start: 11-13-2017 Hepatitis C Screening Hepatitis C Sc reening [facility] Start: 11-13-2017 HIV Screening HIV Screening [facility] Start: 11-13-2013 Peds To Adult Transi tion Annual Assessment Peds To Adult Transition Annual Assessment [facility] Start: 2011 Peds To Adult Transi tion Initial Discussion Peds To Adult Transition Initial Discussion [facility] Start: 11-13-2008 HPV Vaccine (1 - 2-d ose series) HPV Vaccine (1 - 2-dose series) [facility] Start: 05-16-2000 Covid-19 Vaccine (#1) Covid-19 Vacci ne (#1) [facility] Start: 1999 Hepatitis B Vaccine (1 of 3 - 3-dose series) Hepatitis B Vaccine (1 of 3 - 3-dose series) [facility] Payers Date Payer Category Payer Unknown [employer] BLUE CARD PPO OOS [id number] 2022-Present [phone] [address] [place] [address] PPO [id number] Social History Date Type Detail Facility [facility] Work Phone: Start: 01-15-2023 History of Social function [facility] Start: 01-15-2023 Area Deprivation Index [facility] National Score (1-10 0), lower number is lower risk [address] [facility] Start: 1999 Sex Assigned At Not on file C [facility] Clinic Note 01-15-2023 Telephone Encounter - Sneha [...] is transferring care to our practice from [place], and she has made several request for [...] was in the hospital. No updates in [employer].Still need records from [place] if she is going to transfer care. [...] Notes state she is transferring care from [place]. No HEATHER on notes. Patient states she will call us back tomorrow. We need to triage and get records from [place] and make NOB appointment if OK with Dr Escobar documented in this encounter [facility] Summary Purpose Family History No Family History Records FoundNo Family History Records FoundNo Family History Records Found Advance Directives No Advanced Directives Records FoundNo Advanced Directives Records FoundNo Advanced Directives Records Found Additional Source Comments INFORMATION SOURCE (unrecogn ized section and content) DATE CREATED AUTHOR AUTHOR'S ORGANIZ ATION 11/29/2021 [facility] DATE CREATED AUTHOR AUTHOR'S ORGANIZ ATION 01/31/2023 [facility] Source Comments (unrecognize d section and content) [...] BE BASED ON THE PRIMARY CLINICAL RECORDS. [facility]. provides no warranty or guarantee of the accuracy or completeness of information in this document.
== END | disposition home or self-care (01) ==
PROVIDERS: PCP Internal Medicine; Referring Provider Advanced Practice Midwife; Visit Provider Advanced Practice Midwife
DX: O99.119 Other diseases of the blood and blood-forming organs and certain disorders involving the immune mechanism complicating pregnancy, unspecified trimester (principal); D69.6 Thrombocytopenia, unspecified; Z3A.00 Weeks of gestation of pregnancy not specified
CPT/HCPCS: 36415; 85025

== ENCOUNTER 2023-07-17 13:07 | Outpatient (CLI) | payer OTHER, BC, SELFPAY ==
[2023-05-28 11:08] VITALS: RESP 16
[2023-07-17 13:24] VITALS: PULSE 109; O2SAT 98
[2023-07-17 13:29] VITALS: BMI 36.8
[2023-07-17 13:35] VITALS: PULSE 110; RESP 18; TEMP 36.9; O2SAT 98
[2023-07-17 13:40] VITALS: BP 129/70; PULSE 110
[2023-07-17 14:40] LABS: Bacteria 0 SEEN /hpf (None Seen); Mucous, Urine 0 SEEN /hpf (<or=2+); Red Blood Cells-Urine 0 SEEN /hpf (0-5); Squamous Epithelial Cells - UA 0 SEEN /hpf (5-10)
[2023-07-17 14:42] LABS: Color, Urine Yellow (Yellow); Glucose, Dipstick Normal (Normal); Ketone-Dipstick Negative (Negative); Leukocyte Esterase-Dipstick 25 /ul (Negative); Nitrite-Dipstick Negative (Negative); Occult Blood-Urine Negative /ul (Negative); Protein-Dipstick Negative (Negative); Specific Gravity, Urine 1.015 (1.002-1.030); Urine Bilirubin Dipstick Negative (Negative); Urine Clarity Sl. Cloudy (Clear); Urine Urobilinogen Normal (Normal); Urine pH 6.5 (5.0 - 8.0)
[2023-07-17 14:56] LABS: White Blood Cells 0-5 SEEN /hpf (0-5)
--- NOTE | 2023-07-17 17:52 | OB.TRI.PN_ITS ---
Progress Notes Date of Service: 07/17/23 Progress Note: Patient presents for triage evaluation secondary to vaginal pressure FHT: 130 Moderate variability reactive no decelerations category I tracing [place]: no Contractions Assessment and plan: urine culture neg, cervix closed on exam, Reactive NST, reassuring maternal and status patient discharged to home to follow-up in the office. See problem list details for additional plan information. Laboratory Studies: Laboratory Tests 07/17/23 Range/Units 14:20 Urine Color Yellow (Yellow) Urine Clarity Sl. Cloudy (Clear) Urine pH 6.5 (5.0 - 8.0) Ur Specific [place] 1.015 (1.002-1.030) Urine Protein Negative (Negative) mg/dl Urine Glucose (UA) Normal (Normal) mg/dl Urine Ketones Negative (Negative) mg/dl Urine Occult Blood Negative (Negative) /ul Urine Nitrite Negative (Negative) Urine Bilirubin Negative (Negative) mg/dL Urine Urobilinogen Normal (Normal) mg/dl Ur Leukocyte Esterase 25 H (Negative) /ul Urine RBC 0 SEEN (0-5) /hpf Urine WBC 0-5 SEEN (0-5) /hpf Ur Squamous Epith Cells 0 SEEN (5-10) /hpf Urine Bacteria 0 SEEN (None Seen) /hpf Urine Mucus 0 SEEN (<or=2+) /hpf Charges/Coding Multi Select Codes Urinary/Genital Urinary/Genital CPT Codes: 07743-07 non-stress test Interp Assessment & Plan (1) Pelvic pressure in : COMMENT: UA neg, closed cervix (2) Abnormal glucose complicating childbirth: COMMENT: passed 3 hr GTT (3) Thrombocytopenia affecting : COMMENT: 113:rpt 4 wk (4) Recurrent UTI: COMMENT: keflex daily prophylaxis bc of 2 utis in . (5) : QUALIFIERS: Weeks of gestation: 34 weeks Qualified Code(s): Z3A.34 - 34 weeks gestation of COMMENT: declines ntd, nipt/carrier screening. nl anatomy (6) Supervision of high risk in first trimester: COMMENT: PRR HEATHER 07/13/23 girl Elizabeth Boyfriend-Rgahav (7) Genital herpes: QUALIFIERS: Herpes simplex infection site: vulvovaginitis Qualified Code(s): A60.04 - Herpesviral vulvovaginitis COMMENT: Had outbreak,valtrex daily started (8) Anxiety and depression: COMMENT: Previously seeing Dr Pruitt for counseling. now seeing Dr. Stephen . Didn't tolerate Lexapro - sun allergy, Wellbutrin - increase anxiety Trazodone and melatonin - possible increase in nightmares Stable, no meds (9) Migraine: COMMENT: without aura
== END 2023-07-17 15:40 | disposition home or self-care (01) ==
LOC: WPOUT 13:08 → WP 13:08
PROVIDERS: Advanced Practice Midwife; PCP Internal Medicine; Referring Provider Obstetrics & Gynecology; Visit Provider Obstetrics & Gynecology
DX: O99.891 Other specified diseases and conditions complicating pregnancy (principal); O99.810 Abnormal glucose complicating pregnancy; O99.113 Other diseases of the blood and blood-forming organs and certain disorders involving the immune mechanism complicating pregnancy, third trimester; O23.43 Unspecified infection of urinary tract in pregnancy, third trimester; O98.313 Other infections with a predominantly sexual mode of transmission complicating pregnancy, third trimester; O99.353 Diseases of the nervous system complicating pregnancy, third trimester; O99.343 Other mental disorders complicating pregnancy, third trimester; R10.2 Pelvic and perineal pain; D69.6 Thrombocytopenia, unspecified; A60.00 Herpesviral infection of urogenital system, unspecified; G43.909 Migraine, unspecified, not intractable, without status migrainosus; F41.9 Anxiety disorder, unspecified; F32.A Depression, unspecified; Z3A.34 34 weeks gestation of pregnancy
CPT/HCPCS: 59025; 59050; 81001; 87086; 87088; 99221; G0378

== ENCOUNTER → 2023-07-20 | Outpatient (CLI) | payer OTHER, BC, SELFPAY ==
[2023-07-20 09:32] LABS: Absolute Neutrophil Count 9.8 X10^3/uL (2.0-7.7); Basophil# 0.04 X10^3/uL; Basophil% 0.3 % (0-1); Eosinophil# 0.06 X10^3/uL; Eosinophils% 0.5 % (0-5); Hematocrit 37.4 % (37-47); Hemoglobin 12.2 g/dL (12.0-15.0); Lymphocyte % 12.4 % (19-41); Mean Corp Hgb Conc 32.6 g/dL (32-36); Mean Corpuscular Hgb 27.8 pg (27.0-32.0); Mean Corpuscular Volume 85.2 fL (81-99); Mean Platelet Vol. 12.7 fl (6.2-12.0); Monocyte# 0.59 X10^3/uL; Monocyte% 4.9 % (0-10); NRBC Flagged by Analyzer 0 % (0-5); Neutrophil # 9.78 X10^3/uL (2.7-7.7); Neutrophil % 80.7 % (47-70); Platelet Count 113 K/mm3 (150-450); RBC Distribution Width CV 14.1 % (11.6-14.6); RBC Distribution Width SD 43.8 fl (35.1-43.9); Red Blood Count 4.39 M/mm3 (4.2-5.4); White Blood Count 12.1 K/mm3 (4.4-11.0)
== END | disposition home or self-care (01) ==
PROVIDERS: PCP Internal Medicine; Referring Provider Obstetrics & Gynecology; Visit Provider Obstetrics & Gynecology
DX: O09.91 Supervision of high risk pregnancy, unspecified, first trimester (principal); Z3A.00 Weeks of gestation of pregnancy not specified
CPT/HCPCS: 36415; 85025; 87081

== ENCOUNTER → 2023-07-24 | Outpatient (CLI) | payer OTHER, BC, SELFPAY ==
[2023-07-24 09:40] LABS: Absolute Lymphocyte Count 1.52 X10^3/uL (0.83-4.51); Absolute Neutrophil Count 9.6 X10^3/uL (2.0-7.7); Basophil# 0.02 X10^3/uL; Basophil% 0.2 % (0-1); Eosinophil# 0.08 X10^3/uL; Eosinophils% 0.7 % (0-5); Hematocrit 35.3 % (37-47); Lymphocyte # 1.52 X10^3/ul (0.83-4.51); Lymphocyte % 12.8 % (19-41); Mean Corpuscular Hgb 28.6 pg (27.0-32.0); Mean Platelet Vol. 13.4 fl (6.2-12.0); Monocyte# 0.52 X10^3/uL; Monocyte% 4.4 % (0-10); NRBC Flagged by Analyzer 0 % (0-5); Neutrophil # 9.55 X10^3/uL (2.7-7.7); Neutrophil % 80.6 % (47-70); Platelet Count 126 K/mm3 (150-450); RBC Distribution Width CV 14.6 % (11.6-14.6); RBC Distribution Width SD 43.7 fl (35.1-43.9); White Blood Count 11.8 K/mm3 (4.4-11.0)
[2023-07-24 11:36] LABS: ALB/GLOB Ratio 0.6 RATIO (0.9-2.4); AST(SGOT) 12 U/L (15-37); Alanine Aminotransfer ALT/SGPT 13 U/L (13-56); Albumin, Serum 2.5 g/dL (3.2-5.0); Alkaline Phosphatase 120 U/L (45-117); Anion Gap 5 (5-15); BUN 5 mg/dL (7-18); BUN/Creat Ratio 8.3 RATIO (10-20); Calcium,Total 9.1 mg/dL (8.5-10.1); Chloride 110 mmol/L (98-107); EST Glomerular Filtration Rate 130 mL/min (>60); Est Glom Filt Rate - Afr Amer 157 mL/min (>60); Globulin 3.9 g/dL (2.2-4.2); Glucose 128 mg/dL (74-106); Potassium 3.5 mmol/L (3.5-5.1); Protein, Total 6.4 g/dL (6.4-8.2); Sodium Level 137 mmol/L (136-145)
== END | disposition home or self-care (01) ==
LOC: PAVLAB 09:05
PROVIDERS: PCP Internal Medicine; Referring Provider Obstetrics & Gynecology; Visit Provider Obstetrics & Gynecology
DX: R51.9 Headache, unspecified (principal)
CPT/HCPCS: 36415; 80053; 85025

== ENCOUNTER → 2023-07-25 | Outpatient (CLI) | payer OTHER, BC, SELFPAY ==
--- NOTE | 2023-07-25 11:48 | US_ITS ---
STUDY: SECOND AND THIRD TRIMESTER OBSTETRICAL ULTRASOUND REASON FOR EXAM: Female, 22 years old . growth. LMP: November 05, 2022. TECHNIQUE: Transabdominal TECHNICAL QUALITY: Adequate. PRIOR ULTRASOUND: Comparison is made with prior study dated March 19, 2023. FINDINGS: There is a single intrauterine fetus. The fetus is in a cephalic presentation. There is demonstrated cardiac activity with a heart rate of 153 bpm. There is a normal amniotic fluid volume. The largest amniotic fluid pocket measures 3.1 cm. The amniotic fluid index (MAICOL) is 7.8 cm. The placenta is anterior in location and is not low lying. There are Grade 2 placental changes. The cervix was not measured due to the head position. The adnexal regions are not visualized. BIOMETRY: BPD: 9.1 cm: 36 weeks, 6 days HC: 32.84 cm: 37 weeks, 2 days AC: 34.3 cm: 38 weeks, 1 days FL: 7.31 cm: 37 weeks, 3 days CI: 80% FL/BPD: 80% FL/HC: FL/AC: 21% HC/AC: 0.96 age by current US: 37 weeks, 3 days. HEATHER by current US: August 12, 2023. Estimated weight: 3342 grams, +/- 501 grams, 71 %. age by prior US: 37 weeks, 3 days. HEATHER by prior US: August 12, 2023. Age by LMP: 37 weeks, 3 days. HEATHER by LMP: August 12, 2023. US/OB Limited With Biometrics IMPRESSION: Single live intrauterine gestation with mean gestational age of 37 weeks and 3 days. The measurements obtained today fall within normal expected range. Electronically Signed: Clarence Rodriguez MD at 15:36 EDT ,
== END | disposition home or self-care (01) ==
LOC: US 11:47
PROVIDERS: PCP Internal Medicine; Referring Provider Obstetrics & Gynecology; Visit Provider Obstetrics & Gynecology
DX: O26.843 Uterine size-date discrepancy, third trimester (principal); Z3A.00 Weeks of gestation of pregnancy not specified
CPT/HCPCS: 76816

== ENCOUNTER → 2023-07-26 | Outpatient (CLI) | payer OTHER, BC, SELFPAY ==
[2023-07-26 14:57] LABS: ROM Internal Control Test YES-OK TO RESULT pt. (Internal QC)
[2023-07-26 14:58] LABS: ROM Patient Test Negative (Negative); Record Kit Lot#, ROM+ K1374
== END | disposition home or self-care (01) ==
LOC: LABSPEC 14:15
PROVIDERS: PCP Internal Medicine; Referring Provider Obstetrics & Gynecology; Visit Provider Obstetrics & Gynecology
DX: N89.8 Other specified noninflammatory disorders of vagina (principal)
CPT/HCPCS: 84112

== ENCOUNTER 2023-08-06 04:21 | Inpatient (IN) | payer OTHER, BC, SELFPAY ==
[2023-08-06] VITALS (21 sets, daily range): BP systolic 92–139; BP diastolic 53–88; PULSE 74–111; RESP 16–18; TEMP 36.1–36.8; O2SAT 97–100; BMI 36.0
[2023-08-06] MEDS: Lactated Ringers 1,000 ML 999 ML IV (04:35)
[2023-08-06 05:36] LABS: Absolute Lymphocyte Count 2.03 X10^3/uL (0.83-4.51); Basophil# 0.02 X10^3/uL; Basophil% 0.2 % (0-1); Eosinophils% 0.8 % (0-5); Hematocrit 36.6 % (37-47); Hemoglobin 12.2 g/dL (12.0-15.0); Lymphocyte # 2.03 X10^3/ul (0.83-4.51); Lymphocyte % 17.2 % (19-41); Mean Corp Hgb Conc 33.3 g/dL (32-36); Mean Corpuscular Hgb 28.1 pg (27.0-32.0); Mean Corpuscular Volume 84.3 fL (81-99); Mean Platelet Vol. 13.9 fl (6.2-12.0); Monocyte# 0.58 X10^3/uL; Monocyte% 4.9 % (0-10); NRBC Flagged by Analyzer 0 % (0-5); Neutrophil # 8.97 X10^3/uL (2.7-7.7); Neutrophil % 76.1 % (47-70); Platelet Count 110 K/mm3 (150-450); RBC Distribution Width CV 15.2 % (11.6-14.6); RBC Distribution Width SD 45.8 fl (35.1-43.9); Red Blood Count 4.34 M/mm3 (4.2-5.4); White Blood Count 11.8 K/mm3 (4.4-11.0)
[2023-08-06] MEDS: Acetaminophen 500 MG Tablet 1000 MG PO ×3 (05:59→18:35)
[2023-08-06] MEDS: Sodium Citrate/Citric Acid 30 ML UDC PO (06:36)
[2023-08-06] MEDS: Lactated Ringers 1,000 ML 150 ML IV (06:40)
[2023-08-06] MEDS: Cefazolin 2 GM in 0.9% Normal Saline (100mL Bag) 100 ML IV (08:00)
[2023-08-06 08:24] LABS: Syphilis Antibodies Non-reactive
--- NOTE | 2023-08-06 08:29 | PCM.HP.OB ---
HPI - General General Date of Admission: 08/06/23 HPI Narrative GONZÁLEZ PELLETIER, is a 22 F who presents for primary low transverse csection. she had an HSV outbreak two weeks ago and declined a trial of labor for fear of transmission and shedding. she denies any active lesions now they are just resolved. Maternal Data Information HEATHER Calculator Estimated Delivery Date Method Current WG Current Estimate 08/12/23 Ultrasound #1 39w 1d Other Estimates 07/13/23 LMP (Uncertain) 43w 3d PFSH PFSH Medical History (Updated 08/06/23 @ 05:24 by Edna Campoverde) Anxiety COVID-19 Depression Dermatitis Genital herpes affecting Hives Hypersomnia PTSD (post-traumatic stress disorder) Seasonal allergies Sore throat Home Medications Vitamin 1 tab PO DAILY 05/28/23 [History Last Taken 07/16/23 22:00] albuterol sulfate 90 mcg/actuation aerosol inhaler 2 puff inhalation 07/17/23 [History Last Taken Unknown] valacyclovir 1 gram tablet 1,000 mg PO QDAY #30 tabs 07/20/23 [Rx Last Taken Unknown] Allergy/AdvReac Type Severity Reaction Status Date / Time ascorbic acid Allergy Intermediate Hives Verified 07/26/23 13:11 [From Airborne (ascorbate sodium)] glutamine Allergy Intermediate unknown Verified 07/26/23 13:11 [From Airborne (ascorbate sodium)] herbal complex no.124 Allergy Intermediate unknown Verified 07/26/23 13:11 [From Airborne (ascorbate sodium)] lysine HCl Allergy Intermediate unknown Verified 07/26/23 13:11 [From Airborne (ascorbate sodium)] multivitamin with minerals Allergy Intermediate unknown Verified 07/26/23 13:11 [From Airborne (ascorbate sodium)] latex AdvReac Mild hives Verified 07/26/23 13:11 chlorine Allergy Intermediate Anaphylaxis Uncoded 07/26/23 13:11 Family History Mother Breast cancer, Onset Age: 48 Negative Genetic Testing Osteoporosis Grandfather Heart disease Lung cancer, Onset Age: 73 Paternal Grandmother Anxiety Aunt Breast cancer, Onset Age: 61 Other Alcohol abuse Arthritis Cancer Surgical History History of anterior cruciate ligament surgery History of tonsillectomy and adenoidectomy History of wisdom tooth extraction Social History current occupational status: employed current occupation: [employer] Smoking Status: Never smoker alcohol intake: current alcohol intake frequency: a few times a month substance use type: does not use and marijuana what type of physical activity do you participate in: walking frequency: daily seatbelt use: always do you feel safe at home: Yes additional social history: Boyfriend-Raghav History 1 Elective abortions Hx Para 0 Spontaneous abortions Hx # Term Pregnancies Ectopic pregnancies Hx # Pregnancies Multiple births # of living children Visit Details Expected Delivery Route/Plan Labor Preferences- CB/BF classes: encouraged labor support person: Raghav labor intervention preferences: [] pain management options preferred: limited but ok w epidural cut cord/dad catch: cord : yes PP control planned: discussed discussed possible routes of delivery and associated risks: [] special requests: [] Plans Covid status: declined Flu vaccine: declined Tdap vaccine: given Rhogam: na LARC form signed: yes Problem list reviewed and updated with the most current plan of care details and appropriate orders placed. Relevant counseling for the gestational age provided. Continue routine care and follow up unless otherwise noted in visit notes/problem list details OB Flowsheet Initial Weight: Not Recorded Date <del>?</del> EGA Weight BP Urine Prot <del>?</del> Glucose FHR FuHt Pres Dilation <del>?</del> Effaced St Visit Note 12/19/22 <del>?</del> 6w 2d 182 lb 8 oz 116/74 116/74 <del>?</del> 122 <del>?</del> JV-pt is experiencing moderate to severe hyperemesis. sending to infusion center. heather given (not based on lmp) of 08/12/23. will discuss nipt when returns in 2 weeks. 01/01/23 <del>?</del> 8w 1d 184 lb 8 oz 121/81 Trace <del>?</del> Negative 171 <del>?</del> LC- mod hyperemesis, not able to keep liquids or solids down. sending to infusion center. promethazine rx sent. accepts nipt/carrier. 01/31/23 <del>?</del> 12w 3d 188 lb 8 oz 120/80 <del>?</del> 170 <del>?</del> JV- pt is still vomiting often. her boss is creating a hostile work environment and insinuating that she does not deserve the time off or respect because she is outside of marriage. She will obtain short term disability. we discussed slander from boss and I am happy to talk with him. 02/28/23 <del>?</del> 16w 3d 187 lb 2 oz 130/89 Negative <del>?</del> Negative 144 <del>?</del> JV- nausea is improving but lost her pump due to insurance. JV- nausea is improving but lost her pump due to insurance. now wants to do carrier and NIPT. 03/27/23 <del>?</del> 20w 2d 196 lb 6 oz 128/62 Negative <del>?</del> Negative 150 20 <del>?</del> KW-no vb/lof/ctx. good fm. 04/24/23 <del>?</del> 24w 2d 200 lb 122/82 Negative <del>?</del> Negative 145 24 <del>?</del> SM- no vb lof good fm no regular ctx start antibiotic for recurrent utis. encouraged CB classes 05/23/23 <del>?</del> 28w 3d 211 lb 6 oz 118/78 Negative <del>?</del> Negative 148 27 <del>?</del> MH-No VB, LOF. Good FM. Larc, tdap. 28 wk labs pending 06/05/23 <del>?</del> 30w 2d 213 lb 120/80 Negative <del>?</del> Negative 140 30 <del>?</del> KW-no vb/lof/ctx. good fm. passed 3 hour gct. need cbc next visit for thrombocytopenia. fearful of having HSV outbreak at time of delivery. reassurance given and discussed P C/S if having outbreak 06/22/23 <del>?</del> 32w 5d 216 lb 4 oz 123/81 Negative <del>?</del> Negative 150 32 <del>?</del> JV- lots of questions about primary cs for herpes. has not had outbreak in a while and is on prophylaxis. plts are stable but now 112. rpt at 35 weeks. 07/05/23 <del>?</del> 34w 4d 218 lb 118/72 Negative <del>?</del> Negative 150 35 <del>?</del> SM_ no vb lof good fm no regular ctx co back pain 07/20/23 <del>?</del> 36w 5d 226 lb 118/78 Negative <del>?</del> Negative 130 37 Cephalic <del>?</del> SM- active clitoral genital herpes outbreak- discussed with patient increasing valtrex to 1 g daily and considering primary , will definitely need if still any signs or symptoms of active infeciton 07/24/23 <del>?</del> 37w 2d 229 lb 6 oz 139/84 Trace <del>?</del> Negative 130 37 Cephalic <del>?</del> SM- having headache will check cbc cmp and patient decided on primary csection due to active herpes infection regardless of if symptoms resolve. agree with patient approve to proceed. 07/26/23 <del>?</del> 37w 4d 226 lb 120/87 <del>?</del> 155 <del>?</del> SM- questionable LOF- rom nplus collected, maicol bedside repeated and 7 cm. will repeat again next week. reactive NST 07/30/23 <del>?</del> 38w 1d 229 lb 122/81 <del>?</del> 140 38 Cephalic <del>?</del> SM- no vb lof good fm n oregular ctx vulvar cymptoms resolving, still wanting primary csection. bedside MAICOL 12 cm. NST FHR Rate Baby A Baseline: 130 ROS Constitutional Constitutional: Reports systems reviewed and no addt'l complaints, except as documented Eyes Eyes: Denies change in vision ENT HEENT: Reports systems reviewed and no addt'l complaints, except as documented; Denies headache(s) Cardiovascular Cardiovascular: Reports systems reviewed and no addt'l complaints, except as documented; Denies chest pain or dyspnea Respiratory/Chest Respiratory/Chest: Reports systems reviewed and no addt'l complaints, except as documented Gastrointestinal Gastrointestinal: Reports systems reviewed and no addt'l complaints, except as documented; Denies abdominal pain Genitourinary Genitourinary: Reports systems reviewed and no addt'l complaints, except as documented, contractions Details: present (irregular) and movement Details: present; Denies dysuria or genital lesions Musculoskeletal Musculoskeletal: Reports systems reviewed and no addt'l complaints, except as documented Neurologic Neurologic: Reports systems reviewed and no addt'l complaints, except as documented Endocrine Endocrinology: Reports systems reviewed and no addt'l complaints, except as documented Vital Signs Vital Signs Vital Signs: 08/06/23 05:19 08/06/23 05:19 08/06/23 05:33 Pulse Rate 111 H 102 H Blood Pressure 139/78 H BP Systolic 139 BP Diastolic 78 Pulse Ox 08/06/23 05:33 Pulse Rate Blood Pressure BP Systolic BP Diastolic Pulse Ox 98 Weight Weight: 230 lb 2.601 oz Body Mass Index (BMI) 36.0 Physical Exam Const alert, oriented x3, no apparent distress and healthy appearing HEENT normocephalic and moist oral mucous membranes Head and Scalp: atraumatic Neck full ROM, no lymphadenopathy, supple and thyroid normal General: trachea midline Lymph Lymphatic: no lymphadenopathy noted Chest inspection of chest normal Resp normal respiratory effort Cardio regular rate GI normal to inspection, nondistended, normoactive bowel sounds, soft to palpation and non-tender Inspection: gravid external exam normal Manual OB Exam: estimated gestational size appropriate, presentation cephalic, dilated, effaced and station Extremity normal to inspection General Extremity: Negative for edema Skin no rashes or lesions noted Neuro no focal motor deficits and deep tendon reflexes 2+ bilaterally Motor Exam: strength 5/5 throughout and clonus absent Psych mental status grossly normal Labs Labs Labs: Blood Type A POSITIVE Antibody Screen NEGATIVE Hct 36.6 % (37-47) L Hgb 12.2 g/dL (12.0-15.0) Obstetrics Ultrasound Syphilis Total Ab Non-reactive Rubella IgG Antibody Reactive (Nonreactive) Hep Bs Antigen Non-Reactive (Nonreactive) Hepatitis C Antibody Non-Reactive (Nonreactive) Chlamydia DNA (NOEL) Negative (Negative) N.gonorrhoeae DNA (NOEL) Negative (Negative) HIV 1&2 Antibody Non-Reactive (Nonreactive) Glucose 1 Hr 50 gm 143 mg/dL (70-140) H Gest Glucose Tolerance MG/DL Assessment & Plan (1) Thrombocytopenia affecting : COMMENT: 113:rpt 4 wk (2) : QUALIFIERS: Weeks of gestation: 38 weeks Qualified Code(s): Z3A.38 - 38 weeks gestation of COMMENT: GBS neg. declines ntd, nipt/carrier screening. nl anatomy (3) Supervision of high risk in first trimester: COMMENT: PRR HEATHER 07/13/23 girl Elizabeth Boyfriend-Raghav (4) Genital herpes: QUALIFIERS: Herpes simplex infection site: vulvovaginitis Qualified Code(s): A60.04 - Herpesviral vulvovaginitis COMMENT: current outbreak at 37 weeks, counseled regarding primary csection vs if lesions resolve, patient to decide and requests primary . scheduled for 08/05 @ 7:15 with SM valtrex increased to 1g daily (5) Anxiety and depression: COMMENT: Previously seeing Dr Pruitt for counseling. now seeing Dr. Stephen . Didn't tolerate Lexapro - sun allergy, Wellbutrin - increase anxiety Trazodone and melatonin - possible increase in nightmares Stable, no meds (6) Migraine: COMMENT: without aura PLAN: Plan proceed with primary low transverse after counseling risks vs benefits of exp management and vs proceeding with primary .
[2023-08-06] MEDS: Oxytocin 15 Units/NS 250ml 15 UNITS/250 ML IV.SOLN 83 UNITS IV (09:15)
[2023-08-06] MEDS: Ketorolac 30 MG/ML Syringe IV ×3 (10:41→22:29)
[2023-08-06] MEDS: Lactated Ringers 1,000 ML 100 ML IV (12:08)
--- NOTE | 2023-08-06 19:13 | OP.PCM_ITS ---
Assessment & Plan (1) Thrombocytopenia affecting : COMMENT: 113:rpt 4 wk (2) : QUALIFIERS: Weeks of gestation: 38 weeks Qualified Code(s): Z3A.38 - 38 weeks gestation of COMMENT: GBS neg. declines ntd, nipt/carrier screening. nl anatomy (3) Recurrent UTI: COMMENT: keflex daily prophylaxis bc of 2 utis in . (4) Supervision of high risk in first trimester: COMMENT: PRR HEATHER 07/13/23 dewayne Johnson Boyfriend-Raghav (5) Genital herpes: QUALIFIERS: Herpes simplex infection site: vulvovaginitis Qualified Code(s): A60.04 - Herpesviral vulvovaginitis COMMENT: current outbreak at 37 weeks, counseled regarding primary csection vs if lesions resolve, patient to decide and requests primary . scheduled for 08/05 @ 7:15 with SM valtrex increased to 1g daily (6) Anxiety and depression: COMMENT: Previously seeing Dr Pruitt for counseling. now seeing Dr. Stephen . Didn't tolerate Lexapro - sun allergy, Wellbutrin - increase anxiety Trazodone and melatonin - possible increase in nightmares Stable, no meds (7) Migraine: COMMENT: without aura (8) delivery delivered: COMMENT: LTCS 38 girl johnson HSV outbreak Maternal Data Information HEATHER Calculator Estimated Delivery Date Method Current WG Current Estimate 08/12/23 Ultrasound #1 39w 1d Other Estimates 07/13/23 LMP (Uncertain) 43w 3d Final HEATHER Source: LMP Details Operative Information Date of Procedure: 08/06/23 Pre-Operative Diagnosis: HSVD infection within the last two weeks, decision for primary cs Post-Operative Diagnosis: same Indications for : - (HSV infection) Indications Narrative: Surgeon: Kika Robertson MD Classification: Scheduled Procedure Type: low transverse hospice volunteer #2: Mckenzie Hernández Type of Anesthesia: Spinal Special Medications: none Antibiotic Given: Ancef 2 grams IV x1 Drain: Espinoza to straight drain Fluids Replaced: crystalloid Procedure Start Time: 07:55 Procedure Stop Time: 08:25 Findings Description of Procedure: Spinal anesthesia was placed without difficulty. Espinoza catheter was placed. The patient was placed in the dorsal supine position with leftward tilt. Patient was prepped and draped in the normal sterile fashion. Pfannenstiel skin incision was made with the scalpel and carried through to the underlying layer of fascia with the scalpel. Fascia was nicked in the midline and the incision extended laterally. The rectus bellies were dissected off superiorly and inferiorly with out complication both sharply and bluntly. The peritoneum was entered digitally. The incision was stretched and a low transverse uterine incision was made with the scalpel. The infant's head was delivered atraumatically followed by the anterior and posterior shoulders without complication the rest of the infant delivered. The cord was clamped and cut and the was handed off to awaiting nurse. The placenta was delivered spontaneously immediately following and was noted to be intact and have a three- vessel cord. The uterus was exteriorized cleared of all clots and debris, and the incision was closed in a single layer closure using #1 Monocryl. The ovaries and fallopian tubes were noted to be within normal limits. The uterus was returned to the maternal abdomen and gutters were cleared of all clots and debris. The peritoneum was closed with 3-0 Monocryl in a running fashion. Gloves were changed prior to fascial closure. Fascia was closed with 0 PDS in a running fashion. Subcutaneous tissue was copiously irrigated and the skin was closed with 3-0 Monocryl in a subcuticular fashion. Mepilex dressing was applied without complication. Patient was taken to recovery in stable condition. It was discussed with the patient that based on the clinical information obtained during this encounter, combined with her history, at this time I would recommend cesareans for future deliveries if further pregnancies are desired. Amniotic Membrane Rupture Type: Artificial Amniotic Fluid Description: Clear Placenta Disposition: [facility] Cord Vessel Description: 3 Vessels Delayed Cord Clamping: Yes Complications Risks of Surgery Discussed w/Patient: Bleeding, Infection, Need for Future C- Sections and Injury to surrounding structure(s) including bowel and bladder Vaginal Delivery Complication Complications: None Admit VTE Documentation VTE Present on Admission: No VTE Mechan Device Prophylaxis: SCD's Procedures Urinary/Genital [id number]: [id number] [facility]
--- NOTE | 2023-08-06 19:16 | DCINST_ITS ---
Discharge Instructions Diet Discharge Diet: No restrictions Activity Discharge Activity: May Not Drive (for 2 weeks or while taking narcotic pain medications.), May Shower and May Take a Tub Bath (in 7 days) May shower in (days): 0 May resume sexual activity in: 4-6 weeks Weight Bearing Status: Full weight bearing Lifting Restrictions: 20 pounds Dressing / Incision Call your doctor if your incision/area has: Continuous Slow Oozing, Sudden Increased Bleeding, Increased Pain/ Swelling, Increased Redness and Foul Smelling Discharge Call your doctor if you observe: Fever of 101 or Higher and Using more than 1 pad per hour (for 2 hours) Suture Line Care: Avoid Pulling/Pushing and Avoid Pinching/Bending Cleanse incision/area with: Soap & Water and Keep Dressing Clean & Dry Follow Up Care Please Follow Up With: Kika Robertson MD When: Call [phone] to make an appointment for an incision check in 1-2 weeks. Test Results: Test results from this visit will be discussed in further detail at your follow- up appointment, if applicable. Discharge Plan Admission Admit Date/Time: 08/06/23 04:21 Attending Provider: Kika Robertson Primary Care Provider: Jorden Dietrich Discharge Orders/Prescriptions Prescriptions: New oxycodone-acetaminophen [Percocet] 5-325 mg tablet 1 tab PO Q6H PRN (Reason: pain) 7 Days Qty: 20 0RF naproxen [naproxen] 500 mg tablet 500 mg PO BID PRN PRN (Reason: Pain) Qty: 30 1RF Continued valacyclovir 1 gram tablet 1,000 mg PO QDAY Qty: 30 6RF Vitamin 1 tab PO DAILY albuterol sulfate 90 mcg/actuation HFA aerosol inhaler 2 puff inhalation Referrals / Follow Up: Jorden Dietrich MD [Primary Care Provider] - Disposition Disposition (needs filled in before D/C Order can be placed): Home, Self Care
[2023-08-06] MEDS: Enoxaparin 40 MG/0.4 ML Syringe SC (20:10)
[2023-08-06] MEDS: 0.9% Saline Lock 10 ML Syringe IV (22:30)
[2023-08-07] MEDS: Acetaminophen 500 MG Tablet 1000 MG PO ×5 (00:33→23:59)
[2023-08-07 04:39] VITALS: BP 111/50; PULSE 95; RESP 16; O2SAT 97
[2023-08-07] MEDS: Ketorolac 30 MG/ML Syringe IV (04:43)
[2023-08-07] MEDS: 0.9% Saline Lock 10 ML Syringe IV (04:43)
[2023-08-07 05:04] LABS: Hematocrit 30.4 % (37-47); Hemoglobin 10.2 g/dL (12.0-15.0); Mean Corp Hgb Conc 33.6 g/dL (32-36); Mean Corpuscular Hgb 28.3 pg (27.0-32.0); Mean Corpuscular Volume 84.2 fL (81-99); Mean Platelet Vol. 13.4 fl (6.2-12.0); Platelet Count 104 K/mm3 (150-450); RBC Distribution Width CV 15.2 % (11.6-14.6); RBC Distribution Width SD 46.3 fl (35.1-43.9); Red Blood Count 3.61 M/mm3 (4.2-5.4); White Blood Count 10.3 K/mm3 (4.4-11.0)
[2023-08-07 08:30] VITALS: BP 120/69; PULSE 92; RESP 16; TEMP 36.2; O2SAT 98
[2023-08-07] MEDS: Senna/Docusate Sodium 1 Tablet PO (10:42)
[2023-08-07] MEDS: Naproxen 500 MG Tablet PO ×2 (10:44→18:07)
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
[2023-08-07 14:00] VITALS: BP 124/76; PULSE 99; RESP 16; TEMP 36.4; O2SAT 99
[2023-08-07] MEDS: hydrOXYzine PAM 25 MG Capsule 50 MG PO (15:32)
--- NOTE | 2023-08-07 18:16 | PCM.PN.OB ---
Subjective Subjective Patient doing well without complaints. Tolerating PO. Ambulating and voiding without difficulty. feeding well. Denies chest pain, shortness of breath, calf pain/swelling, fevers, chills, lightheadedness. Objective Data Objective Data Vital Signs: Vital Signs Temp Pulse Resp BP Pulse Ox O2 Del Method 97.6 F L 99 16 124/76 H 99 Room Air 08/07/23 14:00 08/07/23 14:00 08/07/23 14:00 08/07/23 14:00 08/07/23 14:00 08/07/23 14:00 Oxygen Delivery Method Room Air Weight: 230 lb 2.601 oz Body Mass Index (BMI) 36.0 Intake & Output: Intake and Output for Last 24 Hours 08/05/23 08/06/23 08/07/23 23:59 23:59 23:59 Intake Total 2782.37 / 2782.37 Output Total 750 / 750 500 / 500 Balance 2032.37 / 2032.37 -500 / -500 Lab / Micro Data 08/07/23 04:54 Labs: Laboratory Results - last 24 hr 08/07/23 04:54: WBC 10.3, RBC 3.61 L, Hgb 10.2 L, Hct 30.4 L, MCV 84.2, MCH 28.3, MCHC 33.6, RDW Std Deviation 46.3 H, RDW Coeff of Williams 15.2 H, Plt Count 104 L, MPV 13.4 H ROS Constitutional Constitutional: Reports systems reviewed and no addt'l complaints, except as documented Cardiovascular Cardiovascular: Reports systems reviewed and no addt'l complaints, except as documented Respiratory/Chest Respiratory/Chest: Reports systems reviewed and no addt'l complaints, except as documented Gastrointestinal Gastrointestinal: Reports systems reviewed and no addt'l complaints, except as documented Physical Exam Const alert, oriented x3 and no apparent distress HEENT Head and Scalp: atraumatic Resp normal respiratory effort GI soft to palpation and non-tender Inspection: incision intact, healing well and drainage (none) Bimanual Exam - Vag & Uterus: uterus non-tender Uterus Palpation: uterus fundus firm (below Umbilicus) Assessment & Plan (1) delivery delivered: COMMENT: LTCS 39 girl johnson HSV outbreak PLAN: Plan s/p LTCS PPD # 1 1. routine post care 2. breast feeding- support given 3. rh positive 4. rubella immune
[2023-08-07 20:05] VITALS: BP 133/80; PULSE 108; RESP 16; O2SAT 98
[2023-08-07] MEDS: Enoxaparin 40 MG/0.4 ML Syringe SC (20:12)
[2023-08-08 02:05] VITALS: BP 121/63; PULSE 86; RESP 18; O2SAT 96
[2023-08-08] MEDS: Naproxen 500 MG Tablet PO (02:05)
[2023-08-08] MEDS: Acetaminophen 500 MG Tablet 1000 MG PO (06:05)
--- NOTE | 2023-08-08 08:11 | PCM.PN.OB ---
Subjective Subjective Patient doing well without complaints. Tolerating PO. Ambulating and voiding without difficulty. Feeding well. Denies chest pain, shortness of breath, calf pain/swelling, fevers, chills, lightheadedness. Objective Data Objective Data Vital Signs: Vital Signs Temp Pulse Resp BP Pulse Ox O2 Del Method 97.6 F L 86 18 121/63 H 96 Room Air 08/07/23 14:00 08/08/23 02:05 08/08/23 02:05 08/08/23 02:05 08/08/23 02:05 08/08/23 02:05 Oxygen Delivery Method Room Air Weight: 230 lb 2.601 oz Body Mass Index (BMI) 36.0 Intake & Output: Intake and Output for Last 24 Hours 08/06/23 08/07/23 08/08/23 23:59 23:59 23:59 Intake Total 2782.37 / 2782.37 Output Total 750 / 750 500 / 500 Balance 2032.37 / 2032.37 -500 / -500 Lab / Micro Data 08/07/23 04:54 Physical Exam Const alert and oriented x3 HEENT normocephalic Eyes PERRL Neck full ROM Resp normal respiratory effort GI soft to palpation GI Narrative: FF below U. Dressing dry and intact Palpation: tender other (appropriately) Assessment & Plan (1) delivery delivered: COMMENT: LTCS 39 girl johnson HSV outbreak (2) Anxiety and depression: COMMENT: Previously seeing Dr Pruitt for counseling. now seeing Dr. Stephen . Didn't tolerate Lexapro - sun allergy, Wellbutrin - increase anxiety Trazodone and melatonin - possible increase in nightmares Stable, no meds PLAN: Plan s/p LTCS PPD # 2 1. routine post care 2. breast feeding- support given 3. rh negative 4. rubella immune 5. home today
[2023-08-08 08:56] VITALS: BP 126/80; PULSE 95; RESP 16; TEMP 36.3; O2SAT 96
== END 2023-08-08 10:35 | disposition home or self-care (01) | DRG 787 ==
PROVIDERS: Admitting Provider Obstetrics & Gynecology; PCP Internal Medicine; Visit Provider Obstetrics & Gynecology
PROC: 10D00Z1 Extraction of Products of Conception, Low, Open Approach (ICD-10-PCS; CPT 59514; principal; 2023-08-06 07:00)
DX: O98.32 Other infections with a predominantly sexual mode of transmission complicating childbirth (principal); O99.12 Other diseases of the blood and blood-forming organs and certain disorders involving the immune mechanism complicating childbirth; D69.6 Thrombocytopenia, unspecified; F32.A Depression, unspecified; F41.9 Anxiety disorder, unspecified; A60.04 Herpesviral vulvovaginitis; O99.344 Other mental disorders complicating childbirth; Z37.0 Single live birth; Z3A.38 38 weeks gestation of pregnancy; Z86.16 Personal history of COVID-19
CPT/HCPCS: 59025; 59050; 85025; 85027; 86780; 86850; 86900; 86901; 99221; J7120; A4216; G0378

== ENCOUNTER → 2023-09-19 | Outpatient (CLI) | payer OTHER, BC, SELFPAY ==
[2023-09-19 17:07] LABS: Absolute Lymphocyte Count 2.13 X10^3/uL (0.83-4.51); Absolute Neutrophil Count 5.2 X10^3/uL (2.0-7.7); Basophil# 0.02 X10^3/uL; Basophil% 0.2 % (0-1); Eosinophil# 0.15 X10^3/uL; Eosinophils% 1.9 % (0-5); Hematocrit 42.3 % (37-47); Hemoglobin 13.7 g/dL (12.0-15.0); Lymphocyte # 2.13 X10^3/ul (0.83-4.51); Lymphocyte % 26.3 % (19-41); Mean Corp Hgb Conc 32.4 g/dL (32-36); Mean Corpuscular Hgb 27.8 pg (27.0-32.0); Mean Platelet Vol. 14.3 fl (6.2-12.0); Monocyte# 0.47 X10^3/uL; Monocyte% 5.8 % (0-10); NRBC Flagged by Analyzer 0 % (0-5); Neutrophil # 5.19 X10^3/uL (2.7-7.7); Neutrophil % 64.2 % (47-70); Platelet Count 153 K/mm3 (150-450); RBC Distribution Width CV 13.6 % (11.6-14.6); RBC Distribution Width SD 42.6 fl (35.1-43.9); Red Blood Count 4.92 M/mm3 (4.2-5.4); White Blood Count 8.1 K/mm3 (4.4-11.0)
[2023-09-19 17:43] LABS: ALB/GLOB Ratio 1.3 RATIO (0.9-2.4); AST(SGOT) 21 U/L (15-37); Alanine Aminotransfer ALT/SGPT 30 U/L (13-56); Albumin, Serum 4.3 g/dL (3.2-5.0); Alkaline Phosphatase 89 U/L (45-117); Anion Gap 8 (5-15); BUN 9 mg/dL (7-18); BUN/Creat Ratio 10.3 RATIO (10-20); Calcium,Total 10.1 mg/dL (8.5-10.1); Chloride 105 mmol/L (98-107); Creatinine, Serum 0.88 mg/dL (0.55-1.02); EST Glomerular Filtration Rate 85 mL/min (>60); Est Glom Filt Rate - Afr Amer 102 mL/min (>60); Globulin 3.4 g/dL (2.2-4.2); Glucose 88 mg/dL (74-106); Protein, Total 7.7 g/dL (6.4-8.2); Sodium Level 138 mmol/L (136-145)
== END | disposition home or self-care (01) ==
LOC: BIMLAB 14:13
PROVIDERS: PCP Internal Medicine; Referring Provider Internal Medicine; Visit Provider Internal Medicine
DX: F41.9 Anxiety disorder, unspecified (principal); F32.9 Major depressive disorder, single episode, unspecified
CPT/HCPCS: 36415; 80053; 85025

== ENCOUNTER → 2023-12-14 | Outpatient (CLI) | payer OTHER, BC, SELFPAY ==
[2023-12-14 14:51] LABS: Red Blood Cells-Urine 0 SEEN /hpf (0-5)
[2023-12-14 15:09] LABS: Color, Urine Red (Yellow); Glucose, Dipstick Normal (Normal); Ketone-Dipstick Negative (Negative); Leukocyte Esterase-Dipstick Negative /ul (Negative); Nitrite-Dipstick Positive (Negative); Occult Blood-Urine 10 /ul (Negative); Protein-Dipstick 100 mg/dl (Negative); Urine Clarity Cloudy (Clear); Urine Urobilinogen 12 mg/dl (Normal); Urine pH 6.5 (5.0 - 8.0)
[2023-12-14 15:44] LABS: Urine Bilirubin Dipstick 6 mg/dL (Negative)
[2023-12-14 15:47] LABS: Amorphous Sediment 4+; Bacteria 1+ /hpf (None Seen); Mucous, Urine 1+ /hpf (<or=2+); Squamous Epithelial Cells - UA 5-10 SEEN /hpf (5-10); White Blood Cells 10-25 SEEN /hpf (0-5)
== END | disposition home or self-care (01) ==
LOC: LABSPEC 14:27
PROVIDERS: PCP Internal Medicine; Referring Provider Physician Assistant Surgical; Visit Provider Physician Assistant Surgical
DX: R30.0 Dysuria (principal)
CPT/HCPCS: 81001; 87086

== ENCOUNTER → 2024-07-03 | Outpatient (CLI) | payer OTHER, SELFPAY ==
[2024-07-03 13:08] LABS: Absolute Lymphocyte Count 1.93 X10^3/uL (0.83-4.51); Absolute Neutrophil Count 5.5 X10^3/uL (2.0-7.7); Basophil# 0.02 X10^3/uL; Basophil% 0.2 % (0-1); Eosinophil# 0.13 X10^3/uL; Eosinophils% 1.6 % (0-5); Hemoglobin 13.2 g/dL (12.0-15.0); Lymphocyte # 1.93 X10^3/ul (0.83-4.51); Lymphocyte % 23.9 % (19-41); Mean Corpuscular Hgb 28.7 pg (27.0-32.0); Mean Platelet Vol. 12.4 fl (6.2-12.0); Monocyte# 0.42 X10^3/uL; Monocyte% 5.2 % (0-10); NRBC Flagged by Analyzer 0 % (0-5); Neutrophil # 5.53 X10^3/uL (2.7-7.7); Neutrophil % 68.7 % (47-70); Platelet Count 145 K/mm3 (150-450); RBC Distribution Width CV 13.2 % (11.6-14.6); RBC Distribution Width SD 41.5 fl (35.1-43.9); White Blood Count 8.1 K/mm3 (4.4-11.0)
[2024-07-03 13:43] LABS: Hemoglobin A1c 5.5 % (<=5.6)
[2024-07-03 13:49] LABS: CORTISOL AM 6.66 ug/dL (6.02-18.40); Ferritin 39 ng/mL (22-378); Magnesium 1.9 mg/dL (1.5-2.2); Thyroid Stim Hormone (TSH) 0.705 uIU/mL (0.300-4.200); Vitamin B12 536 pg/mL (180-914); Vitamin D,25 Hydroxy 24.2 ng/mL (30-100)
[2024-07-03 14:50] LABS: ALB/GLOB Ratio 1.5 RATIO (0.9-2.4); AST(SGOT) 18 U/L (<=31); Alanine Aminotransfer ALT/SGPT 15 U/L (<=34); Albumin, Serum 4.3 g/dL (3.5-5.0); Alkaline Phosphatase 73 U/L (35-104); Anion Gap 13 (5-15); BUN 9 mg/dL (4-19); Calcium,Total 9.6 mg/dL (7.6-11.0); Carbon Dioxide 23.6 mmol/L (21.0-32.0); Chloride 103 mmol/L (98-108); Creatinine, Serum 0.63 mg/dL (0.70-1.20); EST Glomerular Filtration Rate 127 (>60); Globulin 2.9 g/dL (2.2-4.2); Glucose 92 mg/dL (70-99); Potassium 4.2 mmol/L (3.3-5.1); Protein, Total 7.2 g/dL (5.9-8.4); Sodium Level 139 mmol/L (133-145); Total Bilirubin 0.29 mg/dL (0.00-1.30)
[2024-07-08 18:08] LABS: Endomysial Antibody IgA Negative (Negative); Immunoglobulin A 80 mg/dL (87-352); Thyroglobulin Antibody < 1.0 IU/mL (0.0-0.9); Thyroid Peroxidase AB 112 IU/mL (0-34); t-Transglutaminase IgA <2 U/mL (0-3)
== END | disposition home or self-care (01) ==
LOC: VSLAB 10:33
PROVIDERS: PCP Family Medicine; Visit Provider Family Medicine
DX: R53.83 Other fatigue (principal); R14.0 Abdominal distension (gaseous)
CPT/HCPCS: 36415; 80053; 82306; 82533; 82607; 82728; 82784; 83036; 83516; 83735; 84439; 84443; 85025; 86003; 86005; 86255; 86376; 86800

== ENCOUNTER → 2024-12-08 | Outpatient (CLI) | payer OTHER, SELFPAY | END | disposition home or self-care (01) | LOC: LABSPEC 08:27 | PROVIDERS: PCP Family Medicine; Visit Provider Physician Assistant | DX: R30.0 Dysuria (principal) | CPT/HCPCS: 87086; 87088; 87186 ==